=== PATIENT | male | born 1990 | race Caucasian/White ===

== ENCOUNTER 2021-11-03 21:10 | Inpatient (IN) | payer OTHER ==
[2021-11-03] MEDS ORDERED: LORazepam 2 MG/ML SDV IVPUSH ONE ×4 (21:14→23:36)
[2021-11-03] MEDS ORDERED: LORazepam 2 MG/ML SDV ONE ×2 (21:14→23:03)
[2021-11-03] MEDS ORDERED: Lactated Ringers 1,000 ML IV ONE (21:15)
[2021-11-03] MEDS ORDERED: Sodium Chloride 0.9% 10 ML Syringe FLUSH PRN (21:15)
[2021-11-03] MEDS ORDERED: Sodium Chloride 0.9% 2.5 ML Syringe FLUSH PRN (21:15)
--- NOTE | 2021-11-03 21:20 | EDM.PDOC ---
ED HPI GENERAL MEDICAL PROBLEM - General Chief Complaint: Drug or Alcohol Abuse Stated Complaint: EMS ARRIVAL Time Seen by Provider: 11/03/21 21:14 Source of Information: Reports: EMS, Police History Limitations: Reports: Altered Mental Status - History of Present Illness INITIAL COMMENTS - FREE TEXT/NARRATIVE: 31-year-old male with history of drug abuse was brought in by EMS from detention after he was witnessed to be shaking 30 minutes ago and not answering questions. His eyes were open but he was nonverbal to questions. His blood glucose on scene = 130. He was given IV Narcan 2 mg x 2, 5 mg IV Haldol, 25 mg IV Benadryl by EMS with no improvement. He has been in detention over the past 2 to 3 days. Another guard member said that he had powder on his face today. History and review of systems limited secondary to altered mental status. Past medical history: No additional pertinent history Past Surgical history: No additional pertinent history Social history: No additional pertinent history Family history: No additional pertinent history PHYSICAL EXAM General: Somnolent, no distress HEENT: dry mucous membrane Neck: supple, no meningismus, no Kernig or Brudzinski Cardiac: S1S2 tachycardia Respiratory: CTAB, no crackles or rales, no wheezing Abdomen: Soft, nontender, no rebound or guarding, nondistended, no pulsatile mass. He did urinate on himself Back: nontender Skin: dry Musculoskeletal: NVI distally, old superficial lacerations to his left wrist Neuro: Generalized tonic-clonic activity - Related Data Allergies Allergy/AdvReac Type Severity Reaction Status Date / Time No Known Allergies Allergy Verified 11/03/21 21:16 Home Meds: Home Meds . [No Known Home Meds] 11/03/21 [History] ED ROS GENERAL - Review of Systems Review Of Systems: Unable To Obtain (see dictation) Reason Not Obtained: seizure ED EXAM, GENERAL - Physical Exam Exam: See Below Exam Limited By: Altered Mental Status #1 Interpretation EKG Interpretation Comments: Heart rate = bpm, normal sinus rhythm, normal QRS interval, no STEMI. EKG and rhythm strip interpreted by me at 1014p Course - Vital Signs Last Recorded V/S: Last Vital Signs Temp 96.4 F L 11/03/21 21:16 Pulse 62 11/04/21 00:19 Resp 18 11/04/21 00:19 BP 112/66 11/04/21 00:19 Pulse Ox 97 11/04/21 00:19 - Orders/Labs/Meds Orders: Active Orders 24 hr Category Date Time Status Patient Status [ADT] Routine ADT 11/03/21 23:08 Active Blood Alcohol [ETHANOL BLOOD MEDICAL] [CHEM] Stat Lab 11/03/21 21:12 Results COMPREHENSIVE METABOLIC PN,CMP [CHEM] AM Lab 11/04/21 05:11 Ordered COMPREHENSIVE METABOLIC PN,CMP [CHEM] AM Lab 11/05/21 05:11 Ordered COMPREHENSIVE METABOLIC PN,CMP [CHEM] AM Lab 11/06/21 05:11 Ordered COMPREHENSIVE METABOLIC PN,CMP [CHEM] AM Lab 11/07/21 05:11 Ordered MAGNESIUM [CHEM] AM Lab 11/04/21 05:11 Ordered MAGNESIUM [CHEM] AM Lab 11/05/21 05:11 Ordered MAGNESIUM [CHEM] AM Lab 11/06/21 05:11 Ordered MAGNESIUM [CHEM] AM Lab 11/07/21 05:11 Ordered OSMOLALITY - SERUM [REF] Stat Lab 11/03/21 21:12 Received PHOSPHORUS [CHEM] AM Lab 11/04/21 05:11 Ordered PHOSPHORUS [CHEM] AM Lab 11/05/21 05:11 Ordered PHOSPHORUS [CHEM] AM Lab 11/06/21 05:11 Ordered PHOSPHORUS [CHEM] AM Lab 11/07/21 05:11 Ordered PROLACTIN [CHEM] Stat Lab 11/03/21 21:12 Results SODIUM,NA [CHEM] Q1H Lab 11/04/21 02:00 Ordered SODIUM,NA [CHEM] Q1H Lab 11/04/21 03:00 Ordered SODIUM,NA [CHEM] Q1H Lab 11/04/21 04:00 Ordered SODIUM,NA [CHEM] Q1H Lab 11/04/21 06:00 Ordered Folic Acid Med 11/03/21 22:30 Active 1 mg IV DAILY LORazepam [Ativan] Med 11/03/21 23:03 Active See Protocol IVPUSH Q1H PRN Sodium Chloride 0.9% [Saline Flush] Med 11/03/21 21:15 Active 10 ml FLUSH ASDIRECTED PRN Sodium Chloride 0.9% [Saline Flush] Med 11/03/21 21:15 Active 2.5 ml FLUSH ASDIRECTED PRN Sodium Chloride 3% 500 ml Med 11/03/21 22:00 Active IV ASDIRECTED Thiamine [Vitamin B-1] 100 mg Med 11/04/21 09:00 Active Sodium Chloride 0.9% [Normal Saline] 100 ml IV DAILY Saline Lock Insert [OM.PC] Stat Oth 11/03/21 21:15 Ordered Medication Orders Folic Acid (Folic Acid 50 Mg/10 Ml Mdv) 1 mg IV DAILY DALTON Last Admin: 11/03/21 22:29 Dose: 1 mg Documented by: BRIANA Sodium Chloride (Sodium Chloride 3%) 500 mls @ 150 mls/hr IV ASDIRECTED DALTON Last Infusion: 11/04/21 00:35 Dose: 0 mls/hr Documented by: Admin: 11/03/21 22:32 Dose: 150 mls/hr Documented by: BRIANA Thiamine HCl 100 mg/ Sodium (Chloride) 101 mls @ 202 mls/hr IV DAILY DALTON Dextrose/Water (Dextrose 5% In Water) 500 mls @ 500 mls/hr IV ASDIRECTED DALTON Lorazepam (Lorazepam 2 Mg/Ml Sdv) 0 mg IVPUSH Q1H PRN; Protocol PRN Reason: CIWAA Last Admin: 11/04/21 01:07 Dose: 2 mg Documented by: YAMILE Sodium Chloride (Sodium Chloride 0.9% 10 Ml Syringe) 10 ml FLUSH ASDIRECTED PRN PRN Reason: Keep Vein Open Last Admin: 11/03/21 21:23 Dose: 10 ml Documented by: BRIANA Sodium Chloride (Sodium Chloride 0.9% 2.5 Ml Syringe) 2.5 ml FLUSH ASDIRECTED PRN PRN Reason: Keep Vein Open Last Admin: 11/03/21 21:24 Dose: 2.5 ml Documented by: BRIANA Labs: Laboratory Tests 11/03/21 11/03/21 11/03/21 Range/Units 21:12 21:12 21:12 WBC 9.18 (4.0-11.0) K/uL RBC 4.71 (4.50-5.90) M/uL Hgb 14.9 (13.0-17.0) g/dL Hct 39.8 (38.0-50.0) % MCV 84.5 (80.0-98.0) fL MCH 31.6 (27.0-32.0) pg MCHC 37.4 H (31.0-37.0) g/dL RDW Std Deviation 36.4 (28.0-62.0) fl RDW Coeff of Carol 12 (11.0-15.0) % Plt Count 283 (150-400) K/uL MPV 8.90 (7.40-12.00) fL Neut % (Auto) 61.1 (48.0-80.0) % Lymph % (Auto) 29.1 (16.0-40.0) % [place]yer % (Auto) 8.9 (0.0-15.0) % Eos % (Auto) 0.8 (0.0-7.0) % Baso % (Auto) 0.1 (0.0-1.5) % Neut # (Auto) 5.6 (1.4-5.7) K/uL Lymph # (Auto) 2.7 H (0.6-2.4) K/uL Sawyer # (Auto) 0.8 (0.0-0.8) K/uL Eos # (Auto) 0.1 (0.0-0.7) K/uL Baso # (Auto) 0.0 (0.0-0.1) K/uL Nucleated RBC % 0.0 /100WBC Nucleated RBCs # 0 K/uL Sodium 119 L* (136-148) mmol/L Potassium 4.1 (3.5-5.1) mmol/L Chloride 84 L (98-107) mmol/L Carbon Dioxide 22.8 (21.0-32.0) mmol/L BUN 12 (7.0-18.0) mg/dL Creatinine 0.8 (0.8-1.3) mg/dL Est Cr Clr Drug Dosing 129.44 mL/min Estimated GFR (MDRD) > 60.0 ml/min Glucose 133 H (74-106) mg/dL Calcium 8.7 (8.5-10.1) mg/dL Phosphorus 2.1 L (2.6-4.7) mg/dL Magnesium 1.7 L (1.8-2.4) mg/dL Total Bilirubin 0.7 (0.2-1.0) mg/dL AST 56 H (15-37) IU/L ALT 105 H (14-63) IU/L Alkaline Phosphatase 110 (46-116) U/L Creatine Kinase 187 (26-308) U/L Total Protein 7.6 (6.4-8.2) g/dL Albumin 4.0 (3.4-5.0) g/dL Globulin 3.6 (2.6-4.0) g/dL Albumin/Globulin Ratio 1.1 (0.9-1.6) Urine Color Urine Appearance Urine pH (5.0-8.0) Ur Specific [place] (1.001-1.035) Urine Protein (NEGATIVE) mg/dL Urine Glucose (UA) (NEGATIVE) mg/dL Urine Ketones (NEGATIVE) mg/dL Urine Occult Blood (NEGATIVE) Urine Nitrite (NEGATIVE) Urine Bilirubin (NEGATIVE) Urine Urobilinogen (<2.0) EU/dL Ur Leukocyte Esterase (NEGATIVE) Urine RBC (0-2/HPF) Urine WBC (0-5/HPF) Ur Epithelial Cells (NONE-FEW) Urine Bacteria (NEGATIVE) Urine Opiates Screen (NEGATIVE) Ur Oxycodone Screen (NEGATIVE) Urine Methadone Screen (NEGATIVE) Ur Barbiturates Screen (NEGATIVE) Ur Phencyclidine Scrn (NEGATIVE) Ur Amphetamine Screen (NEGATIVE) U Methamphetamines Scrn (NEGATIVE) U Benzodiazepines Scrn (NEGATIVE) U Cocaine Metab Screen (NEGATIVE) U Marijuana (THC) Screen (NEGATIVE) Ethyl Alcohol <3 mg/dL SARS-CoV-2 RNA (BRE) (NEGATIVE) 11/03/21 11/03/21 11/03/21 Range/Units 21:20 22:10 22:10 WBC (4.0-11.0) K/uL RBC (4.50-5.90) M/uL Hgb (13.0-17.0) g/dL Hct (38.0-50.0) % MCV (80.0-98.0) fL MCH (27.0-32.0) pg MCHC (31.0-37.0) g/dL RDW Std Deviation (28.0-62.0) fl RDW Coeff of Carol (11.0-15.0) % Plt Count (150-400) K/uL MPV (7.40-12.00) fL Neut % (Auto) (48.0-80.0) % Lymph % (Auto) (16.0-40.0) % Sawyer % (Auto) (0.0-15.0) % Eos % (Auto) (0.0-7.0) % Baso % (Auto) (0.0-1.5) % Neut # (Auto) (1.4-5.7) K/uL Lymph # (Auto) (0.6-2.4) K/uL [place]yer # (Auto) (0.0-0.8) K/uL Eos # (Auto) (0.0-0.7) K/uL Baso # (Auto) (0.0-0.1) K/uL Nucleated RBC % /100WBC Nucleated RBCs # K/uL Sodium (136-148) mmol/L Potassium (3.5-5.1) mmol/L Chloride (98-107) mmol/L Carbon Dioxide (21.0-32.0) mmol/L BUN (7.0-18.0) mg/dL Creatinine (0.8-1.3) mg/dL Est Cr Clr Drug Dosing mL/min Estimated GFR (MDRD) ml/min Glucose (74-106) mg/dL Calcium (8.5-10.1) mg/dL Phosphorus (2.6-4.7) mg/dL Magnesium (1.8-2.4) mg/dL Total Bilirubin (0.2-1.0) mg/dL AST (15-37) IU/L ALT (14-63) IU/L Alkaline Phosphatase (46-116) U/L Creatine Kinase (26-308) U/L Total Protein (6.4-8.2) g/dL Albumin (3.4-5.0) g/dL Globulin (2.6-4.0) g/dL Albumin/Globulin Ratio (0.9-1.6) Urine Color YELLOW Urine Appearance CLEAR Urine pH 6.5 (5.0-8.0) Ur Specific [place] 1.010 (1.001-1.035) Urine Protein NEGATIVE (NEGATIVE) mg/dL Urine Glucose (UA) NEGATIVE (NEGATIVE) mg/dL Urine Ketones NEGATIVE (NEGATIVE) mg/dL Urine Occult Blood TRACE-INTACT H (NEGATIVE) Urine Nitrite NEGATIVE (NEGATIVE) Urine Bilirubin NEGATIVE (NEGATIVE) Urine Urobilinogen 0.2 (<2.0) EU/dL Ur Leukocyte Esterase NEGATIVE (NEGATIVE) Urine RBC 0-2 (0-2/HPF) Urine WBC 0-1 (0-5/HPF) Ur Epithelial Cells RARE (NONE-FEW) Urine Bacteria RARE (NEGATIVE) Urine Opiates Screen NEGATIVE (NEGATIVE) Ur Oxycodone Screen NEGATIVE (NEGATIVE) Urine Methadone Screen NEGATIVE (NEGATIVE) Ur Barbiturates Screen NEGATIVE (NEGATIVE) Ur Phencyclidine Scrn NEGATIVE (NEGATIVE) Ur Amphetamine Screen POSITIVE (NEGATIVE) U Methamphetamines Scrn NEGATIVE (NEGATIVE) U Benzodiazepines Scrn NEGATIVE (NEGATIVE) U Cocaine Metab Screen NEGATIVE (NEGATIVE) U Marijuana (THC) Screen NEGATIVE (NEGATIVE) Ethyl Alcohol mg/dL SARS-CoV-2 RNA (BRE) NEGATIVE (NEGATIVE) 11/03/21 Range/Units 22:28 WBC (4.0-11.0) K/uL RBC (4.50-5.90) M/uL Hgb (13.0-17.0) g/dL Hct (38.0-50.0) % MCV (80.0-98.0) fL MCH (27.0-32.0) pg MCHC (31.0-37.0) g/dL RDW Std Deviation (28.0-62.0) fl RDW Coeff of Carol (11.0-15.0) % Plt Count (150-400) K/uL MPV (7.40-12.00) fL Neut % (Auto) (48.0-80.0) % Lymph % (Auto) (16.0-40.0) % [place]yer % (Auto) (0.0-15.0) % Eos % (Auto) (0.0-7.0) % Baso % (Auto) (0.0-1.5) % Neut # (Auto) (1.4-5.7) K/uL Lymph # (Auto) (0.6-2.4) K/uL [place]yer # (Auto) (0.0-0.8) K/uL Eos # (Auto) (0.0-0.7) K/uL Baso # (Auto) (0.0-0.1) K/uL Nucleated RBC % /100WBC Nucleated RBCs # K/uL Sodium 123 L (136-148) mmol/L Potassium (3.5-5.1) mmol/L Chloride (98-107) mmol/L Carbon Dioxide (21.0-32.0) mmol/L BUN (7.0-18.0) mg/dL Creatinine (0.8-1.3) mg/dL Est Cr Clr Drug Dosing mL/min Estimated GFR (MDRD) ml/min Glucose (74-106) mg/dL Calcium (8.5-10.1) mg/dL Phosphorus (2.6-4.7) mg/dL Magnesium (1.8-2.4) mg/dL Total Bilirubin (0.2-1.0) mg/dL AST (15-37) IU/L ALT (14-63) IU/L Alkaline Phosphatase (46-116) U/L Creatine Kinase (26-308) U/L Total Protein (6.4-8.2) g/dL Albumin (3.4-5.0) g/dL Globulin (2.6-4.0) g/dL Albumin/Globulin Ratio (0.9-1.6) Urine Color Urine Appearance Urine pH (5.0-8.0) Ur Specific [place] (1.001-1.035) Urine Protein (NEGATIVE) mg/dL Urine Glucose (UA) (NEGATIVE) mg/dL Urine Ketones (NEGATIVE) mg/dL Urine Occult Blood (NEGATIVE) Urine Nitrite (NEGATIVE) Urine Bilirubin (NEGATIVE) Urine Urobilinogen (<2.0) EU/dL Ur Leukocyte Esterase (NEGATIVE) Urine RBC (0-2/HPF) Urine WBC (0-5/HPF) Ur Epithelial Cells (NONE-FEW) Urine Bacteria (NEGATIVE) Urine Opiates Screen (NEGATIVE) Ur Oxycodone Screen (NEGATIVE) Urine Methadone Screen (NEGATIVE) Ur Barbiturates Screen (NEGATIVE) Ur Phencyclidine Scrn (NEGATIVE) Ur Amphetamine Screen (NEGATIVE) U Methamphetamines Scrn (NEGATIVE) U Benzodiazepines Scrn (NEGATIVE) U Cocaine Metab Screen (NEGATIVE) U Marijuana (THC) Screen (NEGATIVE) Ethyl Alcohol mg/dL SARS-CoV-2 RNA (BRE) (NEGATIVE) Meds: Medications Generic Name Dose Route Start Last Admin Trade Name Sandra PRN Reason Stop Dose Admin Folic Acid 1 mg 11/03/21 22:30 11/03/21 22:29 Folic Acid 50 Mg/10 Ml Mdv IV 1 mg DAILY DALTON Administration Sodium Chloride 500 mls @ 150 mls/hr 11/03/21 22:00 11/04/21 00:35 Sodium Chloride 3% IV 0 mls/hr ASDIRECTED DALTON Infusion Thiamine HCl 100 mg/ Sodium 101 mls @ 202 mls/hr 11/04/21 09:00 Chloride IV DAILY DALTON Dextrose/Water 500 mls @ 500 mls/hr 11/04/21 01:31 Dextrose 5% In Water IV ASDIRECTED DALTON Lorazepam 0 mg 11/03/21 23:03 11/04/21 01:07 Lorazepam 2 Mg/Ml Sdv IVPUSH 2 mg Q1H PRN Administration CIWAA Protocol Sodium Chloride 10 ml 11/03/21 21:15 11/03/21 21:23 Sodium Chloride 0.9% 10 Ml Syringe FLUSH 10 ml ASDIRECTED PRN Administration Keep Vein Open Sodium Chloride 2.5 ml 11/03/21 21:15 11/03/21 21:24 Sodium Chloride 0.9% 2.5 Ml Syringe FLUSH 2.5 ml ASDIRECTED PRN Administration Keep Vein Open Discontinued Medications Generic Name Dose Route Start Last Admin Trade Name Sandra PRN Reason Stop Dose Admin Lactated Ringer's 1,000 mls @ 999 mls/hr 11/03/21 21:15 11/03/21 21:24 Ringers, Lactated IV 11/03/21 22:15 999 mls/hr .BOLUS ONE Administration Lorazepam 2 mg 11/03/21 21:14 11/03/21 21:24 Lorazepam 2 Mg/Ml Sdv IVPUSH 11/03/21 21:15 2 mg ONETIME ONE Administration Lorazepam Confirm 11/03/21 21:14 11/03/21 21:20 Lorazepam 2 Mg/Ml Sdv Administered 11/03/21 21:15 Not Given Dose 2 mg .ROUTE .STK-MED ONE Lorazepam 2 mg 11/03/21 21:30 11/03/21 21:34 Lorazepam 2 Mg/Ml Sdv IVPUSH 11/03/21 21:31 2 mg ONETIME ONE Administration Lorazepam 1 mg 11/03/21 23:02 11/03/21 23:45 Lorazepam 2 Mg/Ml Sdv IVPUSH 11/03/21 23:03 1 mg ONETIME ONE Administration Lorazepam Confirm 11/03/21 23:03 11/03/21 23:34 Lorazepam 2 Mg/Ml Sdv Administered 11/03/21 23:04 Not Given Dose 2 mg .ROUTE .STK-MED ONE Lorazepam 1 mg 11/03/21 23:36 11/03/21 23:45 Lorazepam 2 Mg/Ml Sdv IVPUSH 11/03/21 23:37 1 mg ONETIME ONE Administration Thiamine HCl 400 mg 11/03/21 22:16 11/03/21 22:29 Thiamine 200 Mg/2 Ml Mdv IVPUSH 11/03/21 22:17 400 mg ONETIME ONE Administration - Re-Assessments/Exams Free Text/Narrative Re-Assessment/Exam: 11/03/21 21:20 Patient given 2 mg IV Ativan upon arrival for seizure-like activity. 11/03/21 21:59 After second dose of 2 mg IV Ativan, patient's generalized tonic-clonic seizure activity is much improved. Sodium reported at 119, will initiate hypertonic saline with 3% NaCl for symptomatic hyponatremia. 11/03/21 22:19 Toribio inserted, this was met with 1200 cc urine output. 11/03/21 22:[address] Becerra, who agrees to admit patient. The hospitalist's documentation supersedes all other documentation on this patient with regard to any conflicts or discrepancies from this point forward. Any emergency conditions have been treated to the ability of the ED prior to admission. He recommends hourly sodium level, thiamine and folic acid. 11/03/21 23:10 Repeat sodium level = 123, will d/c hypertonic 3% NaCl infusion. Departure - Departure Time of Disposition: 22:20 Disposition: Admitted As Inpatient 66 Preliminary Cause of *Q: Multi System Organ Failure (/) Condition: Critical Clinical Impression: Alcohol withdrawal syndrome, Drug abuse, Hyponatremia, Seizure, Amphetamine abuse - Discharge Information *PRESCRIPTION DRUG MONITORING PROGRAM REVIEWED*: Not Applicable *COPY OF PRESCRIPTION DRUG MONITORING REPORT IN PATIENT MARIE: Not Applicable Critical Care Note - Critical Care Note Total Time (mins): 40 Comments: CRITCAL CARE: The high probability of sudden, clinically significant deterioration in the patient's condition required the highest level of my preparedness to intervene urgently. The services I provided to this patient were to treat and/or prevent clinically significant deterioration. Services included the following: chart data review, reviewing nursing notes and/or old charts, documentation time, cardiology consultants collaboration regarding findings and treatment options, medication orders and management, direct patient care, vital sign assessments and ordering, interpreting and reviewing diagnostic studies/lab tests. Aggregate critical care time includes only time during which I was engaged in work directly related to the patient's care, as described above, whether at the bedside or elsewhere in the Emergency Department. It did not include time spent performing other reported procedures or the services of residents, students, nurses or physician assistants. Frequent interventions and/or frequent repeat evaluations were required as well as counseling and coordination of care regarding prognosis, treatments, and discussions with patient, staff and consultants. Critical Care (excluding other procedures): 40 minutes Sepsis Event Note (ED) - Focused Exam Vital Signs: Vital Signs Temp Pulse Resp BP Pulse Ox 11/03/21 21:30 53 L 18 104/59 L 97 11/03/21 21:16 96.4 F L 62 20 100 - My Orders Last 24 Hours: My Active Orders 11/03/21 21:12 Blood Alcohol [ETHANOL BLOOD MEDICAL] [CHEM] Stat OSMOLALITY - SERUM [REF] Stat PROLACTIN [CHEM] Stat 11/03/21 21:15 Sodium Chloride 0.9% [Saline Flush] 10 ml FLUSH ASDIRECTED PRN Sodium Chloride 0.9% [Saline Flush] 2.5 ml FLUSH ASDIRECTED PRN Saline Lock Insert [OM.PC] Stat 11/03/21 22:00 Sodium Chloride 3% 500 ml IV ASDIRECTED 11/03/21 22:30 Folic Acid 1 mg IV DAILY 11/03/21 23:08 Patient Status [ADT] Routine - Assessment/Plan Last 24 Hours: My Active Orders 11/03/21 21:12 Blood Alcohol [ETHANOL BLOOD MEDICAL] [CHEM] Stat OSMOLALITY - SERUM [REF] Stat PROLACTIN [CHEM] Stat 11/03/21 21:15 Sodium Chloride 0.9% [Saline Flush] 10 ml FLUSH ASDIRECTED PRN Sodium Chloride 0.9% [Saline Flush] 2.5 ml FLUSH ASDIRECTED PRN Saline Lock Insert [OM.PC] Stat 11/03/21 22:00 Sodium Chloride 3% 500 ml IV ASDIRECTED 11/03/21 22:30 Folic Acid 1 mg IV DAILY 11/03/21 23:08 Patient Status [ADT] Routine
[2021-11-03 21:33] LABS: BLOOD UREA NITROGEN,BUN 12 mg/dL (7.0-18.0); CARBON DIOXIDE,CO2 22.8 mmol/L (21.0-32.0); CHLORIDE,CL 84 mmol/L (98-107); GLUCOSE RANDOM 133 mg/dL (74-106); POTASSIUM,K 4.1 mmol/L (3.5-5.1)
[2021-11-03 21:36] LABS: SODIUM,NA 119 mmol/L (136-148)
[2021-11-03] MEDS ORDERED: Sodium Chloride 3% 500 ML IV SCH (22:00)
[2021-11-03] MEDS ORDERED: Thiamine 200 MG/2 ML MDV IVPUSH ONE (22:16)
[2021-11-03] MEDS: Folic Acid 50 MG/10 ML MDV IV SCH (22:29)
--- NOTE | 2021-11-03 23:06 | PCM.HP.2 ---
H&P History of Present Illness - General Date of Service: 11/03/21 - History of Present Illness Initial Comments - Free Text/Narative: 31 yo male who presents to the ED from correction after having a seizure. He has been in correction for three days. Guards report that he is a known drug user and fellow inmates told them he was going to cut something with coffee grounds. He reportedly had powder on his face in correction. He was given narcan, benadryl and haldol by EMS. In the ED he was tremulous and obtunded. He was given ativan and a liter of lactated ringers. His sodium was noted to be 119 on admission and on repeat went up to 123. He has had a liter of urine output. - Related Data Allergies/Adverse Reactions: Allergies Allergy/AdvReac Type Severity Reaction Status Date / Time No Known Allergies Allergy Verified 11/03/21 21:16 Home Medications: Home Meds . [No Known Home Meds] 11/03/21 [History] Past Medical History - Past Health History Medical/Surgical History: Denies Medical/Surgical History Social & Family History - Family History Family Medical History: Unobtainable - Tobacco Use Tobacco Use Status *Q: Current Status Unknown - Caffeine Use Caffeine Use: Reports: None - Recreational Drug Use Recreational Drug Use: Yes Drug Use in Last 12 Months: Yes Recreational Drug Type: Reports: Heroin, Methamphetamine Recreational Drug Use Frequency: Patient Refuses To Answer H&P Review of Systems - Review of Systems: Review Of Systems: Comprehensive ROS is negative, except as noted in HPI. Exam - Exam Exam: See Below - Vital Signs Vital Signs: Last Vital Signs Temp 35.8 C L 11/03/21 21:16 Pulse 53 L 11/03/21 21:30 Resp 18 11/03/21 21:30 BP 104/59 L 11/03/21 21:30 Pulse Ox 97 11/03/21 21:30 Weight: 70.307 kg - Exam General: Obtunded HEENT: Mucosa Moist & [place] Neck: Supple Lungs: Clear to Auscultation, Normal Respiratory Effort Cardiovascular: Regular Rate, Regular Rhythm GI/Abdominal Exam: Normal Bowel Sounds, Soft, Non-Tender Extremities: Non-Tender, No Pedal Edema Skin: Warm, Dry, Intact - Patient Data Lab Results Last 24 hrs: Laboratory Results - last 24 hr 11/03/21 11/03/21 11/03/21 Range/Units 21:12 21:12 21:12 WBC 9.18 (4.0-11.0) K/uL RBC 4.71 (4.50-5.90) M/uL Hgb 14.9 (13.0-17.0) g/dL Hct 39.8 (38.0-50.0) % MCV 84.5 (80.0-98.0) fL MCH 31.6 (27.0-32.0) pg MCHC 37.4 H (31.0-37.0) g/dL RDW Std Deviation 36.4 (28.0-62.0) fl RDW Coeff of Carol 12 (11.0-15.0) % Plt Count 283 (150-400) K/uL MPV 8.90 (7.40-12.00) fL Neut % (Auto) 61.1 (48.0-80.0) % Lymph % (Auto) 29.1 (16.0-40.0) % [place] % (Auto) 8.9 (0.0-15.0) % Eos % (Auto) 0.8 (0.0-7.0) % Baso % (Auto) 0.1 (0.0-1.5) % Neut # (Auto) 5.6 (1.4-5.7) K/uL Lymph # (Auto) 2.7 H (0.6-2.4) K/uL [place] # (Auto) 0.8 (0.0-0.8) K/uL Eos # (Auto) 0.1 (0.0-0.7) K/uL Baso # (Auto) 0.0 (0.0-0.1) K/uL Nucleated RBC % 0.0 /100WBC Nucleated RBCs # 0 K/uL Sodium 119 L* (136-148) mmol/L Potassium 4.1 (3.5-5.1) mmol/L Chloride 84 L (98-107) mmol/L Carbon Dioxide 22.8 (21.0-32.0) mmol/L BUN 12 (7.0-18.0) mg/dL Creatinine 0.8 (0.8-1.3) mg/dL Est Cr Clr Drug Dosing 129.44 mL/min Estimated GFR (MDRD) > 60.0 ml/min Glucose 133 H (74-106) mg/dL Calcium 8.7 (8.5-10.1) mg/dL Phosphorus 2.1 L (2.6-4.7) mg/dL Magnesium 1.7 L (1.8-2.4) mg/dL Total Bilirubin 0.7 (0.2-1.0) mg/dL AST 56 H (15-37) IU/L ALT 105 H (14-63) IU/L Alkaline Phosphatase 110 (46-116) U/L Creatine Kinase 187 (26-308) U/L Total Protein 7.6 (6.4-8.2) g/dL Albumin 4.0 (3.4-5.0) g/dL Globulin 3.6 (2.6-4.0) g/dL Albumin/Globulin Ratio 1.1 (0.9-1.6) Urine Color Urine Appearance Urine pH (5.0-8.0) Ur Specific [place] (1.001-1.035) Urine Protein (NEGATIVE) mg/dL Urine Glucose (UA) (NEGATIVE) mg/dL Urine Ketones (NEGATIVE) mg/dL Urine Occult Blood (NEGATIVE) Urine Nitrite (NEGATIVE) Urine Bilirubin (NEGATIVE) Urine Urobilinogen (<2.0) EU/dL Ur Leukocyte Esterase (NEGATIVE) Urine RBC (0-2/HPF) Urine WBC (0-5/HPF) Ur Epithelial Cells (NONE-FEW) Urine Bacteria (NEGATIVE) Urine Opiates Screen (NEGATIVE) Ur Oxycodone Screen (NEGATIVE) Urine Methadone Screen (NEGATIVE) Ur Barbiturates Screen (NEGATIVE) Ur Phencyclidine Scrn (NEGATIVE) Ur Amphetamine Screen (NEGATIVE) U Methamphetamines Scrn (NEGATIVE) U Benzodiazepines Scrn (NEGATIVE) U Cocaine Metab Screen (NEGATIVE) U Marijuana (THC) Screen (NEGATIVE) Ethyl Alcohol <3 mg/dL SARS-CoV-2 RNA (BRE) (NEGATIVE) 11/03/21 11/03/21 11/03/21 Range/Units 21:20 22:10 22:10 WBC (4.0-11.0) K/uL RBC (4.50-5.90) M/uL Hgb (13.0-17.0) g/dL Hct (38.0-50.0) % MCV (80.0-98.0) fL MCH (27.0-32.0) pg MCHC (31.0-37.0) g/dL RDW Std Deviation (28.0-62.0) fl RDW Coeff of Carol (11.0-15.0) % Plt Count (150-400) K/uL MPV (7.40-12.00) fL Neut % (Auto) (48.0-80.0) % Lymph % (Auto) (16.0-40.0) % [place] % (Auto) (0.0-15.0) % Eos % (Auto) (0.0-7.0) % Baso % (Auto) (0.0-1.5) % Neut # (Auto) (1.4-5.7) K/uL Lymph # (Auto) (0.6-2.4) K/uL [place] # (Auto) (0.0-0.8) K/uL Eos # (Auto) (0.0-0.7) K/uL Baso # (Auto) (0.0-0.1) K/uL Nucleated RBC % /100WBC Nucleated RBCs # K/uL Sodium (136-148) mmol/L Potassium (3.5-5.1) mmol/L Chloride (98-107) mmol/L Carbon Dioxide (21.0-32.0) mmol/L BUN (7.0-18.0) mg/dL Creatinine (0.8-1.3) mg/dL Est Cr Clr Drug Dosing mL/min Estimated GFR (MDRD) ml/min Glucose (74-106) mg/dL Calcium (8.5-10.1) mg/dL Phosphorus (2.6-4.7) mg/dL Magnesium (1.8-2.4) mg/dL Total Bilirubin (0.2-1.0) mg/dL AST (15-37) IU/L ALT (14-63) IU/L Alkaline Phosphatase (46-116) U/L Creatine Kinase (26-308) U/L Total Protein (6.4-8.2) g/dL Albumin (3.4-5.0) g/dL Globulin (2.6-4.0) g/dL Albumin/Globulin Ratio (0.9-1.6) Urine Color YELLOW Urine Appearance CLEAR Urine pH 6.5 (5.0-8.0) Ur Specific [place] 1.010 (1.001-1.035) Urine Protein NEGATIVE (NEGATIVE) mg/dL Urine Glucose (UA) NEGATIVE (NEGATIVE) mg/dL Urine Ketones NEGATIVE (NEGATIVE) mg/dL Urine Occult Blood TRACE-INTACT H (NEGATIVE) Urine Nitrite NEGATIVE (NEGATIVE) Urine Bilirubin NEGATIVE (NEGATIVE) Urine Urobilinogen 0.2 (<2.0) EU/dL Ur Leukocyte Esterase NEGATIVE (NEGATIVE) Urine RBC 0-2 (0-2/HPF) Urine WBC 0-1 (0-5/HPF) Ur Epithelial Cells RARE (NONE-FEW) Urine Bacteria RARE (NEGATIVE) Urine Opiates Screen NEGATIVE (NEGATIVE) Ur Oxycodone Screen NEGATIVE (NEGATIVE) Urine Methadone Screen NEGATIVE (NEGATIVE) Ur Barbiturates Screen NEGATIVE (NEGATIVE) Ur Phencyclidine Scrn NEGATIVE (NEGATIVE) Ur Amphetamine Screen POSITIVE (NEGATIVE) U Methamphetamines Scrn NEGATIVE (NEGATIVE) U Benzodiazepines Scrn NEGATIVE (NEGATIVE) U Cocaine Metab Screen NEGATIVE (NEGATIVE) U Marijuana (THC) Screen NEGATIVE (NEGATIVE) Ethyl Alcohol mg/dL SARS-CoV-2 RNA (BRE) NEGATIVE (NEGATIVE) 11/03/21 Range/Units 22:28 WBC (4.0-11.0) K/uL RBC (4.50-5.90) M/uL Hgb (13.0-17.0) g/dL Hct (38.0-50.0) % MCV (80.0-98.0) fL MCH (27.0-32.0) pg MCHC (31.0-37.0) g/dL RDW Std Deviation (28.0-62.0) fl RDW Coeff of Carol (11.0-15.0) % Plt Count (150-400) K/uL MPV (7.40-12.00) fL Neut % (Auto) (48.0-80.0) % Lymph % (Auto) (16.0-40.0) % [place] % (Auto) (0.0-15.0) % Eos % (Auto) (0.0-7.0) % Baso % (Auto) (0.0-1.5) % Neut # (Auto) (1.4-5.7) K/uL Lymph # (Auto) (0.6-2.4) K/uL [place] # (Auto) (0.0-0.8) K/uL Eos # (Auto) (0.0-0.7) K/uL Baso # (Auto) (0.0-0.1) K/uL Nucleated RBC % /100WBC Nucleated RBCs # K/uL Sodium 123 L (136-148) mmol/L Potassium (3.5-5.1) mmol/L Chloride (98-107) mmol/L Carbon Dioxide (21.0-32.0) mmol/L BUN (7.0-18.0) mg/dL Creatinine (0.8-1.3) mg/dL Est Cr Clr Drug Dosing mL/min Estimated GFR (MDRD) ml/min Glucose (74-106) mg/dL Calcium (8.5-10.1) mg/dL Phosphorus (2.6-4.7) mg/dL Magnesium (1.8-2.4) mg/dL Total Bilirubin (0.2-1.0) mg/dL AST (15-37) IU/L ALT (14-63) IU/L Alkaline Phosphatase (46-116) U/L Creatine Kinase (26-308) U/L Total Protein (6.4-8.2) g/dL Albumin (3.4-5.0) g/dL Globulin (2.6-4.0) g/dL Albumin/Globulin Ratio (0.9-1.6) Urine Color Urine Appearance Urine pH (5.0-8.0) Ur Specific [place] (1.001-1.035) Urine Protein (NEGATIVE) mg/dL Urine Glucose (UA) (NEGATIVE) mg/dL Urine Ketones (NEGATIVE) mg/dL Urine Occult Blood (NEGATIVE) Urine Nitrite (NEGATIVE) Urine Bilirubin (NEGATIVE) Urine Urobilinogen (<2.0) EU/dL Ur Leukocyte Esterase (NEGATIVE) Urine RBC (0-2/HPF) Urine WBC (0-5/HPF) Ur Epithelial Cells (NONE-FEW) Urine Bacteria (NEGATIVE) Urine Opiates Screen (NEGATIVE) Ur Oxycodone Screen (NEGATIVE) Urine Methadone Screen (NEGATIVE) Ur Barbiturates Screen (NEGATIVE) Ur Phencyclidine Scrn (NEGATIVE) Ur Amphetamine Screen (NEGATIVE) U Methamphetamines Scrn (NEGATIVE) U Benzodiazepines Scrn (NEGATIVE) U Cocaine Metab Screen (NEGATIVE) U Marijuana (THC) Screen (NEGATIVE) Ethyl Alcohol mg/dL SARS-CoV-2 RNA (BRE) (NEGATIVE) Result Diagrams: 11/04/21 06:00 11/04/21 14:05 Sepsis Event Note - Evaluation Sepsis Screening Result: No Definite Risk - Focused Exam Vital Signs: Vital Signs Temp Pulse Resp BP Pulse Ox 11/03/21 21:30 53 L 18 104/59 L 97 11/03/21 21:16 35.8 C L 62 20 100 Problem List Initiated/Reviewed/Updated: Yes Orders Last 24hrs: Active Orders 24 hr Category Date Time Status Cardiac Monitoring [RC] . DIRECTED Care 11/03/21 21:15 Active Pulse Oximetry [RC] ASDIRECTED Care 11/03/21 21:15 Active CXR [Chest 1V Frontal] [CR] Stat Exams 11/03/21 22:41 Ordered Head wo Cont [CT] Stat Exams 11/03/21 21:49 Ordered Blood Alcohol [ETHANOL BLOOD MEDICAL] [CHEM] Stat Lab 11/03/21 21:12 Results COMPREHENSIVE METABOLIC PN,CMP [CHEM] AM Lab 11/04/21 05:11 Ordered COMPREHENSIVE METABOLIC PN,CMP [CHEM] AM Lab 11/05/21 05:11 Ordered COMPREHENSIVE METABOLIC PN,CMP [CHEM] AM Lab 11/06/21 05:11 Ordered COMPREHENSIVE METABOLIC PN,CMP [CHEM] AM Lab 11/07/21 05:11 Ordered MAGNESIUM [CHEM] AM Lab 11/04/21 05:11 Ordered MAGNESIUM [CHEM] AM Lab 11/05/21 05:11 Ordered MAGNESIUM [CHEM] AM Lab 11/06/21 05:11 Ordered MAGNESIUM [CHEM] AM Lab 11/07/21 05:11 Ordered OSMOLALITY - SERUM [REF] Stat Lab 11/03/21 21:12 Received PHOSPHORUS [CHEM] AM Lab 11/04/21 05:11 Ordered PHOSPHORUS [CHEM] AM Lab 11/05/21 05:11 Ordered PHOSPHORUS [CHEM] AM Lab 11/06/21 05:11 Ordered PHOSPHORUS [CHEM] AM Lab 11/07/21 05:11 Ordered PROLACTIN [CHEM] Stat Lab 11/03/21 21:12 Results SODIUM,NA [CHEM] Q1H Lab 11/04/21 01:00 Ordered SODIUM,NA [CHEM] Q1H Lab 11/04/21 02:00 Ordered SODIUM,NA [CHEM] Q1H Lab 11/04/21 03:00 Ordered SODIUM,NA [CHEM] Q1H Lab 11/04/21 04:00 Ordered SODIUM,NA [CHEM] Q1H Lab 11/04/21 05:00 Ordered SODIUM,NA [CHEM] Q1H Lab 11/04/21 06:00 Ordered SODIUM,NA [CHEM] Routine Lab 11/03/21 23:59 Ordered Folic Acid Med 11/03/21 22:30 Active 1 mg IV DAILY LORazepam [Ativan] Med 11/03/21 23:03 Ordered See Protocol IVPUSH Q1H PRN Sodium Chloride 0.9% [Saline Flush] Med 11/03/21 21:15 Active 10 ml FLUSH ASDIRECTED PRN Sodium Chloride 0.9% [Saline Flush] Med 11/03/21 21:15 Active 2.5 ml FLUSH ASDIRECTED PRN Sodium Chloride 3% 500 ml Med 11/03/21 22:00 Active IV ASDIRECTED Thiamine [Vitamin B-1] 100 mg Med 11/04/21 09:00 Ordered Sodium Chloride 0.9% [Normal Saline] 100 ml IV DAILY Saline Lock Insert [OM.PC] Stat Oth 11/03/21 21:15 Ordered Medication Orders Folic Acid (Folic Acid 50 Mg/10 Ml Mdv) 1 mg IV DAILY [facility] Last Admin: 11/03/21 22:29 Dose: 1 mg Documented by: BRIANA Sodium Chloride (Sodium Chloride 3%) 500 mls @ 150 mls/hr IV ASDIRECTED [place] Last Admin: 11/03/21 22:32 Dose: 150 mls/hr Documented by: BRIANA Thiamine HCl 100 mg/ Sodium (Chloride) 101 mls @ 202 mls/hr IV DAILY [facility] Lorazepam (Lorazepam 2 Mg/Ml Sdv) 0 mg IVPUSH Q1H PRN; Protocol PRN Reason: CIWAA Sodium Chloride (Sodium Chloride 0.9% 10 Ml Syringe) 10 ml FLUSH ASDIRECTED PRN PRN Reason: Keep Vein Open Last Admin: 11/03/21 21:23 Dose: 10 ml Documented by: WILLIANGMIC Sodium Chloride (Sodium Chloride 0.9% 2.5 Ml Syringe) 2.5 ml FLUSH ASDIRECTED PRN PRN Reason: Keep Vein Open Last Admin: 11/03/21 21:24 Dose: 2.5 ml Documented by: SEAGMIC Assessment/Plan Comment:: 31 yo male with suspect drug/ETOH abuse admitted following seizure and found to have severe hyponatremia. Hyponatremia: Patient was given a liter of lactate ringers, sodium has increased by 4, will continue to trend. I spoke and discussed case with eICU physician suspected ETOH abuse: will place on CIWAA protocol, with prn Ativan, folic acid and thiamin
--- NOTE | 2021-11-03 23:37 | CT ---
Indication: Seizure. Technique: Multiple contiguous axial images were obtained from the skullbase to the vertex without intravenous contrast enhancement. Please note that all CT scans at this facility use dose modulation, iterative reconstruction, and/or weight-based dosing when appropriate to reduce radiation dose to as low as reasonably achievable. Comparison: None Findings: The ventricles are symmetric and normal in size and morphology. The basal cisterns are widely patent. No intra-axial or extra-axial hemorrhage is identified. No mass, mass effect or midline shift is identified. The visualized portions of the mastoid air cells and paranasal sinuses are clear. The bony calvarium is intact. Impression: No acute intracranial process. Please note that all CT scans at this facility use dose modulation, iterative reconstruction, and/or weight-based dosing when appropriate to reduce radiation dose to as low as reasonably achievable. Dictated by Mallory Martinez MD @ 11/03/2021 11:35:36 PM (Electronically Signed)
--- NOTE | 2021-11-03 23:45 | CR ---
Indication: Seizure. Technique: AP portable view of the chest. Comparison: None Findings: The heart is normal in size. The lungs are clear. No infiltrate, pleural effusion, or pneumothorax is identified. Impression: No acute cardiopulmonary process Dictated by Mallory Martinez MD @ 11/03/2021 11:44:34 PM (Electronically Signed)
[2021-11-04] MEDS: LORazepam 2 MG/ML SDV IVPUSH PRN ×4 (01:07→08:47)
[2021-11-04] MEDS ORDERED: Dextrose 5% in Water 500 ML IV SCH (01:31)
--- NOTE | 2021-11-04 01:35 | PN ---
THC Physician - Brief Progress PtuaMZUXTZGER36/12/2021 01:03[facility] Penny [place]den, [place] - MWN (RERE) - SHAYY HOANGDEON HERNÁNDEZNedraDate of Service 11/04/2021 01:03HPI/Events o f Note eICU Admission NoteSign out recieved from ER admitting [id number] yo M incarcerated BIBEMS af ter being found seizing after suspected inhalational ingestion. Stigmata of white powder found around his naresNa low on arrival to ER Recieved multiple doses of ativan and started on hypertonic salineO n Camera Awake and alertUncooperative with nursing staffAppears euvoleamic HR 85 NSR BP 130/88 RR 18 Sats 97% RALabs of noteNa 119 to 131 !Chloride 84eICU Recommendations:Discussed with bedside RN- only briefly recieved hypertonic saline, was turned off before he arrived in ICUDid recieve 4 L of fluids in ERSerum Osm was sent at 9pm from ER but send out lab and turn around 12-24 hrs. Without serum osm to confirm, it is difficult to be sure this is real vs pseudohyponatremia. Will give 500ml D5W bolus and try aim to get Na closer to 125 for nowThank you for allowing us to participate in the care of y our patient.Interventions Major-Electrolyte abnormality - evaluation and managementIntermediate-Commu nication with other healthcare providers and/or familyElectronically Signed by: GAB LOZOYA) o n 11/04/2021 01:34
[2021-11-04] MEDS ORDERED: Dextrose 5% in Water 1,000 ML IV SCH ×3 (01:45→10:15)
[2021-11-04] MEDS ORDERED: Haloperidol Lactate 5 MG/ML SDV IM ONE (04:14)
[2021-11-04] MEDS ORDERED: Haloperidol Lactate 5 MG/ML SDV ONE ×2 (04:14→16:03)
--- NOTE | 2021-11-04 04:17 | PN ---
THC Physician - Brief Progress [id number]/12/2021 04:13[facility] Ramirez lauraPenny, KERRI - SHAYY (RERE) - DEON ORNELASDate of Service 11/04/2021 04:13HPI/Events o f Note Asked to camera in emergently- attendedPatient thrashing Attempting to climb out of bed despit e being handcuffed to bed Difficult to redirectHaldol 7mg IMI statAlso Na to 135- will give dose of d davp to try reverseInterventions Major-Delirium, psychosis, severe agitation - evaluation and managem ent, Electrolyte abnormality - evaluation and management
[2021-11-04] MEDS ORDERED: Desmopressin 4 MCG/1 ML Amp SUBCUT ONE (04:31)
[2021-11-04 05:30] LABS: BLOOD UREA NITROGEN,BUN 9 mg/dL (7.0-18.0); CARBON DIOXIDE,CO2 25.1 mmol/L (21.0-32.0); CHLORIDE,CL 105 mmol/L (98-107); GLUCOSE RANDOM 87 mg/dL (74-106); POTASSIUM,K 4.3 mmol/L (3.5-5.1); SODIUM,NA 140 mmol/L (136-148)
--- NOTE | 2021-11-04 07:07 | PN ---
THC Physician - Brief Progress [id number]/12/2021 07:06[facility] Penny sanchez [place] - SHAYY (RERE) - DEON ORNELASDate of Service 11/04/2021 07:06HPI/Events o f Note Na up to 140 but back down to 138 Will give another 500ml D5W bolus and continue checking q4h until stabilizesInterventions Major-Electrolyte abnormality - evaluation and management
[2021-11-04] MEDS: Folic Acid 50 MG/10 ML MDV IV SCH (08:47)
[2021-11-04] MEDS ORDERED: Thiamine 100 MG in Sodium Chloride 0.9% 100 ML IV SCH (09:00)
[2021-11-04] MEDS ORDERED: Thiamine 200 MG/2 ML MDV IVPUSH SCH (09:00)
--- NOTE | 2021-11-04 09:08 | PN ---
THC Physician - Brief Progress [id number]/12/2021 08:41[facility] laura [place], [place] - SHAYY (RERE) - DEON ORNELASDate of Service 11/04/2021 08:41HPI/Events o f Note eICU Update NoteSCDs ordered for DVT ppx per requestInterventions Clsqgfzhtigz-[id number] t herapies (e.g. VTE, beta renetta, etc.) 0 8:42
[2021-11-04] MEDS ORDERED: chlordiazePOXIDE 25 MG Cap PO ONE ×2 (13:28→16:24)
--- NOTE | 2021-11-04 13:48 | PCM.PN ---
- General Info Date of Service: 11/04/21 - Review of Systems Systems Review Comment:: denies any pain, denies any drug use - Patient Data Vitals - Most Recent: Last Vital Signs Temp 36.2 C 11/04/21 09:00 Pulse 62 11/04/21 00:19 Resp 22 H 11/04/21 10:00 BP 117/65 11/04/21 09:00 Pulse Ox 99 11/04/21 10:00 Weight - Most Recent: 70.307 kg I&O - Last 24 Hours: Intake & Output 11/03/21 11/04/21 11/04/21 22:59 06:59 14:59 Intake Total 1630 Output Total 7700 Balance -6070 Lab Results Last 24 Hours: Laboratory Results - last 24 hr 11/03/21 11/03/21 11/03/21 Range/Units 21:12 21:12 21:12 WBC 9.18 (4.0-11.0) K/uL RBC 4.71 (4.50-5.90) M/uL Hgb 14.9 (13.0-17.0) g/dL Hct 39.8 (38.0-50.0) % MCV 84.5 (80.0-98.0) fL MCH 31.6 (27.0-32.0) pg MCHC 37.4 H (31.0-37.0) g/dL RDW Std Deviation 36.4 (28.0-62.0) fl RDW Coeff of Carol 12 (11.0-15.0) % Plt Count 283 (150-400) K/uL MPV 8.90 (7.40-12.00) fL Neut % (Auto) 61.1 (48.0-80.0) % Lymph % (Auto) 29.1 (16.0-40.0) % [place] % (Auto) 8.9 (0.0-15.0) % Eos % (Auto) 0.8 (0.0-7.0) % Baso % (Auto) 0.1 (0.0-1.5) % Neut # (Auto) 5.6 (1.4-5.7) K/uL Lymph # (Auto) 2.7 H (0.6-2.4) K/uL [place] # (Auto) 0.8 (0.0-0.8) K/uL Eos # (Auto) 0.1 (0.0-0.7) K/uL Baso # (Auto) 0.0 (0.0-0.1) K/uL Nucleated RBC % 0.0 /100WBC Nucleated RBCs # 0 K/uL Sodium 119 L* (136-148) mmol/L Potassium 4.1 (3.5-5.1) mmol/L Chloride 84 L (98-107) mmol/L Carbon Dioxide 22.8 (21.0-32.0) mmol/L BUN 12 (7.0-18.0) mg/dL Creatinine 0.8 (0.8-1.3) mg/dL Est Cr Clr Drug Dosing 129.44 mL/min Estimated GFR (MDRD) > 60.0 ml/min Glucose 133 H (74-106) mg/dL Lactic Acid (0.4-2.0) mmol/L Calcium 8.7 (8.5-10.1) mg/dL Phosphorus 2.1 L (2.6-4.7) mg/dL Magnesium 1.7 L (1.8-2.4) mg/dL Total Bilirubin 0.7 (0.2-1.0) mg/dL AST 56 H (15-37) IU/L ALT 105 H (14-63) IU/L Alkaline Phosphatase 110 (46-116) U/L Creatine Kinase 187 (26-308) U/L Total Protein 7.6 (6.4-8.2) g/dL Albumin 4.0 (3.4-5.0) g/dL Globulin 3.6 (2.6-4.0) g/dL Albumin/Globulin Ratio 1.1 (0.9-1.6) Urine Color Urine Appearance Urine pH (5.0-8.0) Ur Specific [place] (1.001-1.035) Urine Protein (NEGATIVE) mg/dL Urine Glucose (UA) (NEGATIVE) mg/dL Urine Ketones (NEGATIVE) mg/dL Urine Occult Blood (NEGATIVE) Urine Nitrite (NEGATIVE) Urine Bilirubin (NEGATIVE) Urine Urobilinogen (<2.0) EU/dL Ur Leukocyte Esterase (NEGATIVE) Urine RBC (0-2/HPF) Urine WBC (0-5/HPF) Ur Epithelial Cells (NONE-FEW) Urine Bacteria (NEGATIVE) Urine Opiates Screen (NEGATIVE) Ur Oxycodone Screen (NEGATIVE) Urine Methadone Screen (NEGATIVE) Ur Barbiturates Screen (NEGATIVE) Ur Phencyclidine Scrn (NEGATIVE) Ur Amphetamine Screen (NEGATIVE) U Methamphetamines Scrn (NEGATIVE) U Benzodiazepines Scrn (NEGATIVE) U Cocaine Metab Screen (NEGATIVE) U Marijuana (THC) Screen (NEGATIVE) Ethyl Alcohol <3 mg/dL SARS-CoV-2 RNA (BRE) (NEGATIVE) 11/03/21 11/03/21 11/03/21 Range/Units 21:20 22:10 22:10 WBC (4.0-11.0) K/uL RBC (4.50-5.90) M/uL Hgb (13.0-17.0) g/dL Hct (38.0-50.0) % MCV (80.0-98.0) fL MCH (27.0-32.0) pg MCHC (31.0-37.0) g/dL RDW Std Deviation (28.0-62.0) fl RDW Coeff of Carol (11.0-15.0) % Plt Count (150-400) K/uL MPV (7.40-12.00) fL Neut % (Auto) (48.0-80.0) % Lymph % (Auto) (16.0-40.0) % [place] % (Auto) (0.0-15.0) % Eos % (Auto) (0.0-7.0) % Baso % (Auto) (0.0-1.5) % Neut # (Auto) (1.4-5.7) K/uL Lymph # (Auto) (0.6-2.4) K/uL [place] # (Auto) (0.0-0.8) K/uL Eos # (Auto) (0.0-0.7) K/uL Baso # (Auto) (0.0-0.1) K/uL Nucleated RBC % /100WBC Nucleated RBCs # K/uL Sodium (136-148) mmol/L Potassium (3.5-5.1) mmol/L Chloride (98-107) mmol/L Carbon Dioxide (21.0-32.0) mmol/L BUN (7.0-18.0) mg/dL Creatinine (0.8-1.3) mg/dL Est Cr Clr Drug Dosing mL/min Estimated GFR (MDRD) ml/min Glucose (74-106) mg/dL Lactic Acid (0.4-2.0) mmol/L Calcium (8.5-10.1) mg/dL Phosphorus (2.6-4.7) mg/dL Magnesium (1.8-2.4) mg/dL Total Bilirubin (0.2-1.0) mg/dL AST (15-37) IU/L ALT (14-63) IU/L Alkaline Phosphatase (46-116) U/L Creatine Kinase (26-308) U/L Total Protein (6.4-8.2) g/dL Albumin (3.4-5.0) g/dL Globulin (2.6-4.0) g/dL Albumin/Globulin Ratio (0.9-1.6) Urine Color YELLOW Urine Appearance CLEAR Urine pH 6.5 (5.0-8.0) Ur Specific [place] 1.010 (1.001-1.035) Urine Protein NEGATIVE (NEGATIVE) mg/dL Urine Glucose (UA) NEGATIVE (NEGATIVE) mg/dL Urine Ketones NEGATIVE (NEGATIVE) mg/dL Urine Occult Blood TRACE-INTACT H (NEGATIVE) Urine Nitrite NEGATIVE (NEGATIVE) Urine Bilirubin NEGATIVE (NEGATIVE) Urine Urobilinogen 0.2 (<2.0) EU/dL Ur Leukocyte Esterase NEGATIVE (NEGATIVE) Urine RBC 0-2 (0-2/HPF) Urine WBC 0-1 (0-5/HPF) Ur Epithelial Cells RARE (NONE-FEW) Urine Bacteria RARE (NEGATIVE) Urine Opiates Screen NEGATIVE (NEGATIVE) Ur Oxycodone Screen NEGATIVE (NEGATIVE) Urine Methadone Screen NEGATIVE (NEGATIVE) Ur Barbiturates Screen NEGATIVE (NEGATIVE) Ur Phencyclidine Scrn NEGATIVE (NEGATIVE) Ur Amphetamine Screen POSITIVE (NEGATIVE) U Methamphetamines Scrn NEGATIVE (NEGATIVE) U Benzodiazepines Scrn NEGATIVE (NEGATIVE) U Cocaine Metab Screen NEGATIVE (NEGATIVE) U Marijuana (THC) Screen NEGATIVE (NEGATIVE) Ethyl Alcohol mg/dL SARS-CoV-2 RNA (BRE) NEGATIVE (NEGATIVE) 11/03/21 11/04/21 11/04/21 Range/Units 22:28 00:00 01:03 WBC (4.0-11.0) K/uL RBC (4.50-5.90) M/uL Hgb (13.0-17.0) g/dL Hct (38.0-50.0) % MCV (80.0-98.0) fL MCH (27.0-32.0) pg MCHC (31.0-37.0) g/dL RDW Std Deviation (28.0-62.0) fl RDW Coeff of Carol (11.0-15.0) % Plt Count (150-400) K/uL MPV (7.40-12.00) fL Neut % (Auto) (48.0-80.0) % Lymph % (Auto) (16.0-40.0) % [place] % (Auto) (0.0-15.0) % Eos % (Auto) (0.0-7.0) % Baso % (Auto) (0.0-1.5) % Neut # (Auto) (1.4-5.7) K/uL Lymph # (Auto) (0.6-2.4) K/uL [place] # (Auto) (0.0-0.8) K/uL Eos # (Auto) (0.0-0.7) K/uL Baso # (Auto) (0.0-0.1) K/uL Nucleated RBC % /100WBC Nucleated RBCs # K/uL Sodium 123 L 131 L 136 (136-148) mmol/L Potassium (3.5-5.1) mmol/L Chloride (98-107) mmol/L Carbon Dioxide (21.0-32.0) mmol/L BUN (7.0-18.0) mg/dL Creatinine (0.8-1.3) mg/dL Est Cr Clr Drug Dosing mL/min Estimated GFR (MDRD) ml/min Glucose (74-106) mg/dL Lactic Acid (0.4-2.0) mmol/L Calcium (8.5-10.1) mg/dL Phosphorus (2.6-4.7) mg/dL Magnesium (1.8-2.4) mg/dL Total Bilirubin (0.2-1.0) mg/dL AST (15-37) IU/L ALT (14-63) IU/L Alkaline Phosphatase (46-116) U/L Creatine Kinase (26-308) U/L Total Protein (6.4-8.2) g/dL Albumin (3.4-5.0) g/dL Globulin (2.6-4.0) g/dL Albumin/Globulin Ratio (0.9-1.6) Urine Color Urine Appearance Urine pH (5.0-8.0) Ur Specific [place] (1.001-1.035) Urine Protein (NEGATIVE) mg/dL Urine Glucose (UA) (NEGATIVE) mg/dL Urine Ketones (NEGATIVE) mg/dL Urine Occult Blood (NEGATIVE) Urine Nitrite (NEGATIVE) Urine Bilirubin (NEGATIVE) Urine Urobilinogen (<2.0) EU/dL Ur Leukocyte Esterase (NEGATIVE) Urine RBC (0-2/HPF) Urine WBC (0-5/HPF) Ur Epithelial Cells (NONE-FEW) Urine Bacteria (NEGATIVE) Urine Opiates Screen (NEGATIVE) Ur Oxycodone Screen (NEGATIVE) Urine Methadone Screen (NEGATIVE) Ur Barbiturates Screen (NEGATIVE) Ur Phencyclidine Scrn (NEGATIVE) Ur Amphetamine Screen (NEGATIVE) U Methamphetamines Scrn (NEGATIVE) U Benzodiazepines Scrn (NEGATIVE) U Cocaine Metab Screen (NEGATIVE) U Marijuana (THC) Screen (NEGATIVE) Ethyl Alcohol mg/dL SARS-CoV-2 RNA (BRE) (NEGATIVE) 11/04/21 11/04/21 11/04/21 Range/Units 01:59 03:05 04:03 WBC (4.0-11.0) K/uL RBC (4.50-5.90) M/uL Hgb (13.0-17.0) g/dL Hct (38.0-50.0) % MCV (80.0-98.0) fL MCH (27.0-32.0) pg MCHC (31.0-37.0) g/dL RDW Std Deviation (28.0-62.0) fl RDW Coeff of Carol (11.0-15.0) % Plt Count (150-400) K/uL MPV (7.40-12.00) fL Neut % (Auto) (48.0-80.0) % Lymph % (Auto) (16.0-40.0) % [place] % (Auto) (0.0-15.0) % Eos % (Auto) (0.0-7.0) % Baso % (Auto) (0.0-1.5) % Neut # (Auto) (1.4-5.7) K/uL Lymph # (Auto) (0.6-2.4) K/uL [place] # (Auto) (0.0-0.8) K/uL Eos # (Auto) (0.0-0.7) K/uL Baso # (Auto) (0.0-0.1) K/uL Nucleated RBC % /100WBC Nucleated RBCs # K/uL Sodium 138 137 138 (136-148) mmol/L Potassium (3.5-5.1) mmol/L Chloride (98-107) mmol/L Carbon Dioxide (21.0-32.0) mmol/L BUN (7.0-18.0) mg/dL Creatinine (0.8-1.3) mg/dL Est Cr Clr Drug Dosing mL/min Estimated GFR (MDRD) ml/min Glucose (74-106) mg/dL Lactic Acid (0.4-2.0) mmol/L Calcium (8.5-10.1) mg/dL Phosphorus (2.6-4.7) mg/dL Magnesium (1.8-2.4) mg/dL Total Bilirubin (0.2-1.0) mg/dL AST (15-37) IU/L ALT (14-63) IU/L Alkaline Phosphatase (46-116) U/L Creatine Kinase (26-308) U/L Total Protein (6.4-8.2) g/dL Albumin (3.4-5.0) g/dL Globulin (2.6-4.0) g/dL Albumin/Globulin Ratio (0.9-1.6) Urine Color Urine Appearance Urine pH (5.0-8.0) Ur Specific [place] (1.001-1.035) Urine Protein (NEGATIVE) mg/dL Urine Glucose (UA) (NEGATIVE) mg/dL Urine Ketones (NEGATIVE) mg/dL Urine Occult Blood (NEGATIVE) Urine Nitrite (NEGATIVE) Urine Bilirubin (NEGATIVE) Urine Urobilinogen (<2.0) EU/dL Ur Leukocyte Esterase (NEGATIVE) Urine RBC (0-2/HPF) Urine WBC (0-5/HPF) Ur Epithelial Cells (NONE-FEW) Urine Bacteria (NEGATIVE) Urine Opiates Screen (NEGATIVE) Ur Oxycodone Screen (NEGATIVE) Urine Methadone Screen (NEGATIVE) Ur Barbiturates Screen (NEGATIVE) Ur Phencyclidine Scrn (NEGATIVE) Ur Amphetamine Screen (NEGATIVE) U Methamphetamines Scrn (NEGATIVE) U Benzodiazepines Scrn (NEGATIVE) U Cocaine Metab Screen (NEGATIVE) U Marijuana (THC) Screen (NEGATIVE) Ethyl Alcohol mg/dL SARS-CoV-2 RNA (BRE) (NEGATIVE) 11/04/21 11/04/21 11/04/21 Range/Units 05:00 06:00 06:00 WBC 9.77 (4.0-11.0) K/uL RBC 4.86 (4.50-5.90) M/uL Hgb 15.3 (13.0-17.0) g/dL Hct 40.7 (38.0-50.0) % MCV 83.7 (80.0-98.0) fL MCH 31.5 (27.0-32.0) pg MCHC 37.6 H (31.0-37.0) g/dL RDW Std Deviation 36.6 (28.0-62.0) fl RDW Coeff of Carol 12 (11.0-15.0) % Plt Count 320 (150-400) K/uL MPV 9.30 (7.40-12.00) fL Neut % (Auto) (48.0-80.0) % Lymph % (Auto) (16.0-40.0) % [place] % (Auto) (0.0-15.0) % Eos % (Auto) (0.0-7.0) % Baso % (Auto) (0.0-1.5) % Neut # (Auto) (1.4-5.7) K/uL Lymph # (Auto) (0.6-2.4) K/uL [place] # (Auto) (0.0-0.8) K/uL Eos # (Auto) (0.0-0.7) K/uL Baso # (Auto) (0.0-0.1) K/uL Nucleated RBC % 0.0 /100WBC Nucleated RBCs # 0 K/uL Sodium 140 138 (136-148) mmol/L Potassium 4.3 (3.5-5.1) mmol/L Chloride 105 (98-107) mmol/L Carbon Dioxide 25.1 (21.0-32.0) mmol/L BUN 9 (7.0-18.0) mg/dL Creatinine 0.7 L (0.8-1.3) mg/dL Est Cr Clr Drug Dosing 147.93 mL/min Estimated GFR (MDRD) > 60.0 ml/min Glucose 87 (74-106) mg/dL Lactic Acid (0.4-2.0) mmol/L Calcium 8.7 (8.5-10.1) mg/dL Phosphorus 3.6 (2.6-4.7) mg/dL Magnesium 2.1 (1.8-2.4) mg/dL Total Bilirubin 0.7 (0.2-1.0) mg/dL AST 51 H (15-37) IU/L ALT 90 H (14-63) IU/L Alkaline Phosphatase 106 (46-116) U/L Creatine Kinase (26-308) U/L Total Protein 6.7 (6.4-8.2) g/dL Albumin 3.9 (3.4-5.0) g/dL Globulin 2.8 (2.6-4.0) g/dL Albumin/Globulin Ratio 1.4 (0.9-1.6) Urine Color Urine Appearance Urine pH (5.0-8.0) Ur Specific [place] (1.001-1.035) Urine Protein (NEGATIVE) mg/dL Urine Glucose (UA) (NEGATIVE) mg/dL Urine Ketones (NEGATIVE) mg/dL Urine Occult Blood (NEGATIVE) Urine Nitrite (NEGATIVE) Urine Bilirubin (NEGATIVE) Urine Urobilinogen (<2.0) EU/dL Ur Leukocyte Esterase (NEGATIVE) Urine RBC (0-2/HPF) Urine WBC (0-5/HPF) Ur Epithelial Cells (NONE-FEW) Urine Bacteria (NEGATIVE) Urine Opiates Screen (NEGATIVE) Ur Oxycodone Screen (NEGATIVE) Urine Methadone Screen (NEGATIVE) Ur Barbiturates Screen (NEGATIVE) Ur Phencyclidine Scrn (NEGATIVE) Ur Amphetamine Screen (NEGATIVE) U Methamphetamines Scrn (NEGATIVE) U Benzodiazepines Scrn (NEGATIVE) U Cocaine Metab Screen (NEGATIVE) U Marijuana (THC) Screen (NEGATIVE) Ethyl Alcohol mg/dL SARS-CoV-2 RNA (BRE) (NEGATIVE) 11/04/21 11/04/21 Range/Units 10:05 10:05 WBC (4.0-11.0) K/uL RBC (4.50-5.90) M/uL Hgb (13.0-17.0) g/dL Hct (38.0-50.0) % MCV (80.0-98.0) fL MCH (27.0-32.0) pg MCHC (31.0-37.0) g/dL RDW Std Deviation (28.0-62.0) fl RDW Coeff of Carol (11.0-15.0) % Plt Count (150-400) K/uL MPV (7.40-12.00) fL Neut % (Auto) (48.0-80.0) % Lymph % (Auto) (16.0-40.0) % [place] % (Auto) (0.0-15.0) % Eos % (Auto) (0.0-7.0) % Baso % (Auto) (0.0-1.5) % Neut # (Auto) (1.4-5.7) K/uL Lymph # (Auto) (0.6-2.4) K/uL [place] # (Auto) (0.0-0.8) K/uL Eos # (Auto) (0.0-0.7) K/uL Baso # (Auto) (0.0-0.1) K/uL Nucleated RBC % /100WBC Nucleated RBCs # K/uL Sodium 137 (136-148) mmol/L Potassium (3.5-5.1) mmol/L Chloride (98-107) mmol/L Carbon Dioxide (21.0-32.0) mmol/L BUN (7.0-18.0) mg/dL Creatinine (0.8-1.3) mg/dL Est Cr Clr Drug Dosing mL/min Estimated GFR (MDRD) ml/min Glucose (74-106) mg/dL Lactic Acid 0.7 (0.4-2.0) mmol/L Calcium (8.5-10.1) mg/dL Phosphorus (2.6-4.7) mg/dL Magnesium (1.8-2.4) mg/dL Total Bilirubin (0.2-1.0) mg/dL AST (15-37) IU/L ALT (14-63) IU/L Alkaline Phosphatase (46-116) U/L Creatine Kinase (26-308) U/L Total Protein (6.4-8.2) g/dL Albumin (3.4-5.0) g/dL Globulin (2.6-4.0) g/dL Albumin/Globulin Ratio (0.9-1.6) Urine Color Urine Appearance Urine pH (5.0-8.0) Ur Specific [place] (1.001-1.035) Urine Protein (NEGATIVE) mg/dL Urine Glucose (UA) (NEGATIVE) mg/dL Urine Ketones (NEGATIVE) mg/dL Urine Occult Blood (NEGATIVE) Urine Nitrite (NEGATIVE) Urine Bilirubin (NEGATIVE) Urine Urobilinogen (<2.0) EU/dL Ur Leukocyte Esterase (NEGATIVE) Urine RBC (0-2/HPF) Urine WBC (0-5/HPF) Ur Epithelial Cells (NONE-FEW) Urine Bacteria (NEGATIVE) Urine Opiates Screen (NEGATIVE) Ur Oxycodone Screen (NEGATIVE) Urine Methadone Screen (NEGATIVE) Ur Barbiturates Screen (NEGATIVE) Ur Phencyclidine Scrn (NEGATIVE) Ur Amphetamine Screen (NEGATIVE) U Methamphetamines Scrn (NEGATIVE) U Benzodiazepines Scrn (NEGATIVE) U Cocaine Metab Screen (NEGATIVE) U Marijuana (THC) Screen (NEGATIVE) Ethyl Alcohol mg/dL SARS-CoV-2 RNA (BRE) (NEGATIVE) Med Orders - Current: Current Medications Folic Acid (Folic Acid 50 Mg/10 Ml Mdv) 1 mg IV DAILY [facility] Last Admin: 11/04/21 08:47 Dose: 1 mg Documented by: Dextrose/Water (Dextrose 5% In Water) 1,000 mls @ 999 mls/hr IV ASDIRECTED [place] Desmopressin Acetate 2 mcg/ (Sodium Chloride) 50.5 mls @ 100 mls/hr IV Q6HR [place] Last Admin: 11/04/21 12:17 Dose: 100 mls/hr Documented by: Dextrose/Water (Dextrose 5% In Water) 1,000 mls @ 100 mls/hr IV ASDIRECTED [place] Lorazepam (Lorazepam 2 Mg/Ml Sdv) 0 mg IVPUSH Q1H PRN; Protocol PRN Reason: CIWAA Last Admin: 11/04/21 08:47 Dose: 2 mg Documented by: Sodium Chloride (Sodium Chloride 0.9% 10 Ml Syringe) 10 ml FLUSH ASDIRECTED PRN PRN Reason: Keep Vein Open Last Admin: 11/03/21 21:23 Dose: 10 ml Documented by: Sodium Chloride (Sodium Chloride 0.9% 2.5 Ml Syringe) 2.5 ml FLUSH ASDIRECTED PRN PRN Reason: Keep Vein Open Last Admin: 11/03/21 21:24 Dose: 2.5 ml Documented by: Thiamine HCl (Thiamine 200 Mg/2 Ml Mdv) 100 mg IVPUSH DAILY [facility] Last Admin: 11/04/21 10:16 Dose: Not Given Documented by: Discontinued Medications Chlordiazepoxide HCl (Chlordiazepoxide 25 Mg Cap) 25 mg PO ONETIME ONE Stop: 11/04/21 13:29 Desmopressin Acetate (Desmopressin 4 Mcg/1 Ml Amp) 2 mcg SUBCUT ONETIME ONE Stop: 11/04/21 04:32 Last Admin: 11/04/21 05:22 Dose: 2 mcg Documented by: Haloperidol Lactate (Haloperidol Lactate 5 Mg/Ml Sdv) Confirm Administered Dose 10 mg .ROUTE .STK-MED ONE Stop: 11/04/21 04:15 Last Admin: 11/04/21 04:40 Dose: Not Given Documented by: Haloperidol Lactate (Haloperidol Lactate 5 Mg/Ml Sdv) 7 mg IM ONETIME ONE Stop: 11/04/21 04:15 Last Admin: 11/04/21 04:15 Dose: 7 mg Documented by: Lactated Ringer's (Ringers, Lactated) 1,000 mls @ 999 mls/hr IV .BOLUS ONE Stop: 11/03/21 22:15 Last Admin: 11/03/21 21:24 Dose: 999 mls/hr Documented by: Sodium Chloride (Sodium Chloride 3%) 500 mls @ 150 mls/hr IV ASDIRECTED [place] Last Infusion: 11/04/21 00:35 Dose: 0 mls/hr Documented by: Dextrose/Water (Dextrose 5% In Water) 500 mls @ 500 mls/hr IV ASDIRECTED [place] Dextrose/Water (Dextrose 5% In Water) 1,000 mls @ 500 mls/hr IV ASDIRECTED [place] Last Admin: 11/04/21 01:10 Dose: 500 mls/hr Documented by: Lorazepam (Lorazepam 2 Mg/Ml Sdv) 2 mg IVPUSH ONETIME ONE Stop: 11/03/21 21:15 Last Admin: 11/03/21 21:24 Dose: 2 mg Documented by: Lorazepam (Lorazepam 2 Mg/Ml Sdv) Confirm Administered Dose 2 mg .ROUTE .STK-MED ONE Stop: 11/03/21 21:15 Last Admin: 11/03/21 21:20 Dose: Not Given Documented by: Lorazepam (Lorazepam 2 Mg/Ml Sdv) 2 mg IVPUSH ONETIME ONE Stop: 11/03/21 21:31 Last Admin: 11/03/21 21:34 Dose: 2 mg Documented by: Lorazepam (Lorazepam 2 Mg/Ml Sdv) 1 mg IVPUSH ONETIME ONE Stop: 11/03/21 23:03 Last Admin: 11/03/21 23:45 Dose: 1 mg Documented by: Lorazepam (Lorazepam 2 Mg/Ml Sdv) Confirm Administered Dose 2 mg .ROUTE .STK-MED ONE Stop: 11/03/21 23:04 Last Admin: 11/03/21 23:34 Dose: Not Given Documented by: Lorazepam (Lorazepam 2 Mg/Ml Sdv) 1 mg IVPUSH ONETIME ONE Stop: 11/03/21 23:37 Last Admin: 11/03/21 23:45 Dose: 1 mg Documented by: Thiamine HCl (Thiamine 200 Mg/2 Ml Mdv) 400 mg IVPUSH ONETIME ONE Stop: 11/03/21 22:17 Last Admin: 11/03/21 22:29 Dose: 400 mg Documented by: - Exam General: Lethargic Lungs: Clear to Auscultation, Normal Respiratory Effort Cardiovascular: Regular Rate, Regular Rhythm GI/Abdominal Exam: Soft, Non-Tender, No Distention Extremities: Non-Tender, No Pedal Edema Skin: Warm, Dry, Intact Neurological: No New Focal Deficit - Patient Data Lab Results Last 24 hrs: Laboratory Results - last 24 hr 11/03/21 11/03/21 11/03/21 Range/Units 21:12 21:12 21:12 WBC 9.18 (4.0-11.0) K/uL RBC 4.71 (4.50-5.90) M/uL Hgb 14.9 (13.0-17.0) g/dL Hct 39.8 (38.0-50.0) % MCV 84.5 (80.0-98.0) fL MCH 31.6 (27.0-32.0) pg MCHC 37.4 H (31.0-37.0) g/dL RDW Std Deviation 36.4 (28.0-62.0) fl RDW Coeff of Carol 12 (11.0-15.0) % Plt Count 283 (150-400) K/uL MPV 8.90 (7.40-12.00) fL Neut % (Auto) 61.1 (48.0-80.0) % Lymph % (Auto) 29.1 (16.0-40.0) % [place] % (Auto) 8.9 (0.0-15.0) % Eos % (Auto) 0.8 (0.0-7.0) % Baso % (Auto) 0.1 (0.0-1.5) % Neut # (Auto) 5.6 (1.4-5.7) K/uL Lymph # (Auto) 2.7 H (0.6-2.4) K/uL [place] # (Auto) 0.8 (0.0-0.8) K/uL Eos # (Auto) 0.1 (0.0-0.7) K/uL Baso # (Auto) 0.0 (0.0-0.1) K/uL Nucleated RBC % 0.0 /100WBC Nucleated RBCs # 0 K/uL Sodium 119 L* (136-148) mmol/L Potassium 4.1 (3.5-5.1) mmol/L Chloride 84 L (98-107) mmol/L Carbon Dioxide 22.8 (21.0-32.0) mmol/L BUN 12 (7.0-18.0) mg/dL Creatinine 0.8 (0.8-1.3) mg/dL Est Cr Clr Drug Dosing 129.44 mL/min Estimated GFR (MDRD) > 60.0 ml/min Glucose 133 H (74-106) mg/dL Lactic Acid (0.4-2.0) mmol/L Calcium 8.7 (8.5-10.1) mg/dL Phosphorus 2.1 L (2.6-4.7) mg/dL Magnesium 1.7 L (1.8-2.4) mg/dL Total Bilirubin 0.7 (0.2-1.0) mg/dL AST 56 H (15-37) IU/L ALT 105 H (14-63) IU/L Alkaline Phosphatase 110 (46-116) U/L Creatine Kinase 187 (26-308) U/L Total Protein 7.6 (6.4-8.2) g/dL Albumin 4.0 (3.4-5.0) g/dL Globulin 3.6 (2.6-4.0) g/dL Albumin/Globulin Ratio 1.1 (0.9-1.6) Urine Color Urine Appearance Urine pH (5.0-8.0) Ur Specific [place] (1.001-1.035) Urine Protein (NEGATIVE) mg/dL Urine Glucose (UA) (NEGATIVE) mg/dL Urine Ketones (NEGATIVE) mg/dL Urine Occult Blood (NEGATIVE) Urine Nitrite (NEGATIVE) Urine Bilirubin (NEGATIVE) Urine Urobilinogen (<2.0) EU/dL Ur Leukocyte Esterase (NEGATIVE) Urine RBC (0-2/HPF) Urine WBC (0-5/HPF) Ur Epithelial Cells (NONE-FEW) Urine Bacteria (NEGATIVE) Urine Opiates Screen (NEGATIVE) Ur Oxycodone Screen (NEGATIVE) Urine Methadone Screen (NEGATIVE) Ur Barbiturates Screen (NEGATIVE) Ur Phencyclidine Scrn (NEGATIVE) Ur Amphetamine Screen (NEGATIVE) U Methamphetamines Scrn (NEGATIVE) U Benzodiazepines Scrn (NEGATIVE) U Cocaine Metab Screen (NEGATIVE) U Marijuana (THC) Screen (NEGATIVE) Ethyl Alcohol <3 mg/dL SARS-CoV-2 RNA (BRE) (NEGATIVE) 11/03/21 11/03/21 11/03/21 Range/Units 21:20 22:10 22:10 WBC (4.0-11.0) K/uL RBC (4.50-5.90) M/uL Hgb (13.0-17.0) g/dL Hct (38.0-50.0) % MCV (80.0-98.0) fL MCH (27.0-32.0) pg MCHC (31.0-37.0) g/dL RDW Std Deviation (28.0-62.0) fl RDW Coeff of Carol (11.0-15.0) % Plt Count (150-400) K/uL MPV (7.40-12.00) fL Neut % (Auto) (48.0-80.0) % Lymph % (Auto) (16.0-40.0) % [place] % (Auto) (0.0-15.0) % Eos % (Auto) (0.0-7.0) % Baso % (Auto) (0.0-1.5) % Neut # (Auto) (1.4-5.7) K/uL Lymph # (Auto) (0.6-2.4) K/uL [place] # (Auto) (0.0-0.8) K/uL Eos # (Auto) (0.0-0.7) K/uL Baso # (Auto) (0.0-0.1) K/uL Nucleated RBC % /100WBC Nucleated RBCs # K/uL Sodium (136-148) mmol/L Potassium (3.5-5.1) mmol/L Chloride (98-107) mmol/L Carbon Dioxide (21.0-32.0) mmol/L BUN (7.0-18.0) mg/dL Creatinine (0.8-1.3) mg/dL Est Cr Clr Drug Dosing mL/min Estimated GFR (MDRD) ml/min Glucose (74-106) mg/dL Lactic Acid (0.4-2.0) mmol/L Calcium (8.5-10.1) mg/dL Phosphorus (2.6-4.7) mg/dL Magnesium (1.8-2.4) mg/dL Total Bilirubin (0.2-1.0) mg/dL AST (15-37) IU/L ALT (14-63) IU/L Alkaline Phosphatase (46-116) U/L Creatine Kinase (26-308) U/L Total Protein (6.4-8.2) g/dL Albumin (3.4-5.0) g/dL Globulin (2.6-4.0) g/dL Albumin/Globulin Ratio (0.9-1.6) Urine Color YELLOW Urine Appearance CLEAR Urine pH 6.5 (5.0-8.0) Ur Specific [place] 1.010 (1.001-1.035) Urine Protein NEGATIVE (NEGATIVE) mg/dL Urine Glucose (UA) NEGATIVE (NEGATIVE) mg/dL Urine Ketones NEGATIVE (NEGATIVE) mg/dL Urine Occult Blood TRACE-INTACT H (NEGATIVE) Urine Nitrite NEGATIVE (NEGATIVE) Urine Bilirubin NEGATIVE (NEGATIVE) Urine Urobilinogen 0.2 (<2.0) EU/dL Ur Leukocyte Esterase NEGATIVE (NEGATIVE) Urine RBC 0-2 (0-2/HPF) Urine WBC 0-1 (0-5/HPF) Ur Epithelial Cells RARE (NONE-FEW) Urine Bacteria RARE (NEGATIVE) Urine Opiates Screen NEGATIVE (NEGATIVE) Ur Oxycodone Screen NEGATIVE (NEGATIVE) Urine Methadone Screen NEGATIVE (NEGATIVE) Ur Barbiturates Screen NEGATIVE (NEGATIVE) Ur Phencyclidine Scrn NEGATIVE (NEGATIVE) Ur Amphetamine Screen POSITIVE (NEGATIVE) U Methamphetamines Scrn NEGATIVE (NEGATIVE) U Benzodiazepines Scrn NEGATIVE (NEGATIVE) U Cocaine Metab Screen NEGATIVE (NEGATIVE) U Marijuana (THC) Screen NEGATIVE (NEGATIVE) Ethyl Alcohol mg/dL SARS-CoV-2 RNA (BRE) NEGATIVE (NEGATIVE) 11/03/21 11/04/21 11/04/21 Range/Units 22:28 00:00 01:03 WBC (4.0-11.0) K/uL RBC (4.50-5.90) M/uL Hgb (13.0-17.0) g/dL Hct (38.0-50.0) % MCV (80.0-98.0) fL MCH (27.0-32.0) pg MCHC (31.0-37.0) g/dL RDW Std Deviation (28.0-62.0) fl RDW Coeff of Carol (11.0-15.0) % Plt Count (150-400) K/uL MPV (7.40-12.00) fL Neut % (Auto) (48.0-80.0) % Lymph % (Auto) (16.0-40.0) % [place] % (Auto) (0.0-15.0) % Eos % (Auto) (0.0-7.0) % Baso % (Auto) (0.0-1.5) % Neut # (Auto) (1.4-5.7) K/uL Lymph # (Auto) (0.6-2.4) K/uL [place] # (Auto) (0.0-0.8) K/uL Eos # (Auto) (0.0-0.7) K/uL Baso # (Auto) (0.0-0.1) K/uL Nucleated RBC % /100WBC Nucleated RBCs # K/uL Sodium 123 L 131 L 136 (136-148) mmol/L Potassium (3.5-5.1) mmol/L Chloride (98-107) mmol/L Carbon Dioxide (21.0-32.0) mmol/L BUN (7.0-18.0) mg/dL Creatinine (0.8-1.3) mg/dL Est Cr Clr Drug Dosing mL/min Estimated GFR (MDRD) ml/min Glucose (74-106) mg/dL Lactic Acid (0.4-2.0) mmol/L Calcium (8.5-10.1) mg/dL Phosphorus (2.6-4.7) mg/dL Magnesium (1.8-2.4) mg/dL Total Bilirubin (0.2-1.0) mg/dL AST (15-37) IU/L ALT (14-63) IU/L Alkaline Phosphatase (46-116) U/L Creatine Kinase (26-308) U/L Total Protein (6.4-8.2) g/dL Albumin (3.4-5.0) g/dL Globulin (2.6-4.0) g/dL Albumin/Globulin Ratio (0.9-1.6) Urine Color Urine Appearance Urine pH (5.0-8.0) Ur Specific [place] (1.001-1.035) Urine Protein (NEGATIVE) mg/dL Urine Glucose (UA) (NEGATIVE) mg/dL Urine Ketones (NEGATIVE) mg/dL Urine Occult Blood (NEGATIVE) Urine Nitrite (NEGATIVE) Urine Bilirubin (NEGATIVE) Urine Urobilinogen (<2.0) EU/dL Ur Leukocyte Esterase (NEGATIVE) Urine RBC (0-2/HPF) Urine WBC (0-5/HPF) Ur Epithelial Cells (NONE-FEW) Urine Bacteria (NEGATIVE) Urine Opiates Screen (NEGATIVE) Ur Oxycodone Screen (NEGATIVE) Urine Methadone Screen (NEGATIVE) Ur Barbiturates Screen (NEGATIVE) Ur Phencyclidine Scrn (NEGATIVE) Ur Amphetamine Screen (NEGATIVE) U Methamphetamines Scrn (NEGATIVE) U Benzodiazepines Scrn (NEGATIVE) U Cocaine Metab Screen (NEGATIVE) U Marijuana (THC) Screen (NEGATIVE) Ethyl Alcohol mg/dL SARS-CoV-2 RNA (BRE) (NEGATIVE) 11/04/21 11/04/21 11/04/21 Range/Units 01:59 03:05 04:03 WBC (4.0-11.0) K/uL RBC (4.50-5.90) M/uL Hgb (13.0-17.0) g/dL Hct (38.0-50.0) % MCV (80.0-98.0) fL MCH (27.0-32.0) pg MCHC (31.0-37.0) g/dL RDW Std Deviation (28.0-62.0) fl RDW Coeff of Carol (11.0-15.0) % Plt Count (150-400) K/uL MPV (7.40-12.00) fL Neut % (Auto) (48.0-80.0) % Lymph % (Auto) (16.0-40.0) % [place] % (Auto) (0.0-15.0) % Eos % (Auto) (0.0-7.0) % Baso % (Auto) (0.0-1.5) % Neut # (Auto) (1.4-5.7) K/uL Lymph # (Auto) (0.6-2.4) K/uL [place] # (Auto) (0.0-0.8) K/uL Eos # (Auto) (0.0-0.7) K/uL Baso # (Auto) (0.0-0.1) K/uL Nucleated RBC % /100WBC Nucleated RBCs # K/uL Sodium 138 137 138 (136-148) mmol/L Potassium (3.5-5.1) mmol/L Chloride (98-107) mmol/L Carbon Dioxide (21.0-32.0) mmol/L BUN (7.0-18.0) mg/dL Creatinine (0.8-1.3) mg/dL Est Cr Clr Drug Dosing mL/min Estimated GFR (MDRD) ml/min Glucose (74-106) mg/dL Lactic Acid (0.4-2.0) mmol/L Calcium (8.5-10.1) mg/dL Phosphorus (2.6-4.7) mg/dL Magnesium (1.8-2.4) mg/dL Total Bilirubin (0.2-1.0) mg/dL AST (15-37) IU/L ALT (14-63) IU/L Alkaline Phosphatase (46-116) U/L Creatine Kinase (26-308) U/L Total Protein (6.4-8.2) g/dL Albumin (3.4-5.0) g/dL Globulin (2.6-4.0) g/dL Albumin/Globulin Ratio (0.9-1.6) Urine Color Urine Appearance Urine pH (5.0-8.0) Ur Specific [place] (1.001-1.035) Urine Protein (NEGATIVE) mg/dL Urine Glucose (UA) (NEGATIVE) mg/dL Urine Ketones (NEGATIVE) mg/dL Urine Occult Blood (NEGATIVE) Urine Nitrite (NEGATIVE) Urine Bilirubin (NEGATIVE) Urine Urobilinogen (<2.0) EU/dL Ur Leukocyte Esterase (NEGATIVE) Urine RBC (0-2/HPF) Urine WBC (0-5/HPF) Ur Epithelial Cells (NONE-FEW) Urine Bacteria (NEGATIVE) Urine Opiates Screen (NEGATIVE) Ur Oxycodone Screen (NEGATIVE) Urine Methadone Screen (NEGATIVE) Ur Barbiturates Screen (NEGATIVE) Ur Phencyclidine Scrn (NEGATIVE) Ur Amphetamine Screen (NEGATIVE) U Methamphetamines Scrn (NEGATIVE) U Benzodiazepines Scrn (NEGATIVE) U Cocaine Metab Screen (NEGATIVE) U Marijuana (THC) Screen (NEGATIVE) Ethyl Alcohol mg/dL SARS-CoV-2 RNA (BRE) (NEGATIVE) 11/04/21 11/04/21 11/04/21 Range/Units 05:00 06:00 06:00 WBC 9.77 (4.0-11.0) K/uL RBC 4.86 (4.50-5.90) M/uL Hgb 15.3 (13.0-17.0) g/dL Hct 40.7 (38.0-50.0) % MCV 83.7 (80.0-98.0) fL MCH 31.5 (27.0-32.0) pg MCHC 37.6 H (31.0-37.0) g/dL RDW Std Deviation 36.6 (28.0-62.0) fl RDW Coeff of Carol 12 (11.0-15.0) % Plt Count 320 (150-400) K/uL MPV 9.30 (7.40-12.00) fL Neut % (Auto) (48.0-80.0) % Lymph % (Auto) (16.0-40.0) % [place] % (Auto) (0.0-15.0) % Eos % (Auto) (0.0-7.0) % Baso % (Auto) (0.0-1.5) % Neut # (Auto) (1.4-5.7) K/uL Lymph # (Auto) (0.6-2.4) K/uL [place] # (Auto) (0.0-0.8) K/uL Eos # (Auto) (0.0-0.7) K/uL Baso # (Auto) (0.0-0.1) K/uL Nucleated RBC % 0.0 /100WBC Nucleated RBCs # 0 K/uL Sodium 140 138 (136-148) mmol/L Potassium 4.3 (3.5-5.1) mmol/L Chloride 105 (98-107) mmol/L Carbon Dioxide 25.1 (21.0-32.0) mmol/L BUN 9 (7.0-18.0) mg/dL Creatinine 0.7 L (0.8-1.3) mg/dL Est Cr Clr Drug Dosing 147.93 mL/min Estimated GFR (MDRD) > 60.0 ml/min Glucose 87 (74-106) mg/dL Lactic Acid (0.4-2.0) mmol/L Calcium 8.7 (8.5-10.1) mg/dL Phosphorus 3.6 (2.6-4.7) mg/dL Magnesium 2.1 (1.8-2.4) mg/dL Total Bilirubin 0.7 (0.2-1.0) mg/dL AST 51 H (15-37) IU/L ALT 90 H (14-63) IU/L Alkaline Phosphatase 106 (46-116) U/L Creatine Kinase (26-308) U/L Total Protein 6.7 (6.4-8.2) g/dL Albumin 3.9 (3.4-5.0) g/dL Globulin 2.8 (2.6-4.0) g/dL Albumin/Globulin Ratio 1.4 (0.9-1.6) Urine Color Urine Appearance Urine pH (5.0-8.0) Ur Specific [place] (1.001-1.035) Urine Protein (NEGATIVE) mg/dL Urine Glucose (UA) (NEGATIVE) mg/dL Urine Ketones (NEGATIVE) mg/dL Urine Occult Blood (NEGATIVE) Urine Nitrite (NEGATIVE) Urine Bilirubin (NEGATIVE) Urine Urobilinogen (<2.0) EU/dL Ur Leukocyte Esterase (NEGATIVE) Urine RBC (0-2/HPF) Urine WBC (0-5/HPF) Ur Epithelial Cells (NONE-FEW) Urine Bacteria (NEGATIVE) Urine Opiates Screen (NEGATIVE) Ur Oxycodone Screen (NEGATIVE) Urine Methadone Screen (NEGATIVE) Ur Barbiturates Screen (NEGATIVE) Ur Phencyclidine Scrn (NEGATIVE) Ur Amphetamine Screen (NEGATIVE) U Methamphetamines Scrn (NEGATIVE) U Benzodiazepines Scrn (NEGATIVE) U Cocaine Metab Screen (NEGATIVE) U Marijuana (THC) Screen (NEGATIVE) Ethyl Alcohol mg/dL SARS-CoV-2 RNA (BRE) (NEGATIVE) 11/04/21 11/04/21 Range/Units 10:05 10:05 WBC (4.0-11.0) K/uL RBC (4.50-5.90) M/uL Hgb (13.0-17.0) g/dL Hct (38.0-50.0) % MCV (80.0-98.0) fL MCH (27.0-32.0) pg MCHC (31.0-37.0) g/dL RDW Std Deviation (28.0-62.0) fl RDW Coeff of Carol (11.0-15.0) % Plt Count (150-400) K/uL MPV (7.40-12.00) fL Neut % (Auto) (48.0-80.0) % Lymph % (Auto) (16.0-40.0) % [place] % (Auto) (0.0-15.0) % Eos % (Auto) (0.0-7.0) % Baso % (Auto) (0.0-1.5) % Neut # (Auto) (1.4-5.7) K/uL Lymph # (Auto) (0.6-2.4) K/uL [place] # (Auto) (0.0-0.8) K/uL Eos # (Auto) (0.0-0.7) K/uL Baso # (Auto) (0.0-0.1) K/uL Nucleated RBC % /100WBC Nucleated RBCs # K/uL Sodium 137 (136-148) mmol/L Potassium (3.5-5.1) mmol/L Chloride (98-107) mmol/L Carbon Dioxide (21.0-32.0) mmol/L BUN (7.0-18.0) mg/dL Creatinine (0.8-1.3) mg/dL Est Cr Clr Drug Dosing mL/min Estimated GFR (MDRD) ml/min Glucose (74-106) mg/dL Lactic Acid 0.7 (0.4-2.0) mmol/L Calcium (8.5-10.1) mg/dL Phosphorus (2.6-4.7) mg/dL Magnesium (1.8-2.4) mg/dL Total Bilirubin (0.2-1.0) mg/dL AST (15-37) IU/L ALT (14-63) IU/L Alkaline Phosphatase (46-116) U/L Creatine Kinase (26-308) U/L Total Protein (6.4-8.2) g/dL Albumin (3.4-5.0) g/dL Globulin (2.6-4.0) g/dL Albumin/Globulin Ratio (0.9-1.6) Urine Color Urine Appearance Urine pH (5.0-8.0) Ur Specific [place] (1.001-1.035) Urine Protein (NEGATIVE) mg/dL Urine Glucose (UA) (NEGATIVE) mg/dL Urine Ketones (NEGATIVE) mg/dL Urine Occult Blood (NEGATIVE) Urine Nitrite (NEGATIVE) Urine Bilirubin (NEGATIVE) Urine Urobilinogen (<2.0) EU/dL Ur Leukocyte Esterase (NEGATIVE) Urine RBC (0-2/HPF) Urine WBC (0-5/HPF) Ur Epithelial Cells (NONE-FEW) Urine Bacteria (NEGATIVE) Urine Opiates Screen (NEGATIVE) Ur Oxycodone Screen (NEGATIVE) Urine Methadone Screen (NEGATIVE) Ur Barbiturates Screen (NEGATIVE) Ur Phencyclidine Scrn (NEGATIVE) Ur Amphetamine Screen (NEGATIVE) U Methamphetamines Scrn (NEGATIVE) U Benzodiazepines Scrn (NEGATIVE) U Cocaine Metab Screen (NEGATIVE) U Marijuana (THC) Screen (NEGATIVE) Ethyl Alcohol mg/dL SARS-CoV-2 RNA (BRE) (NEGATIVE) Result Diagrams: 11/04/21 06:00 11/04/21 10:05 Sepsis Event Note - Evaluation Sepsis Screening Result: No Definite Risk - Focused Exam Vital Signs: Vital Signs Temp Resp BP Pulse Ox 11/04/21 10:00 22 H 99 11/04/21 09:00 36.2 C 23 H 117/65 97 11/04/21 08:00 36.2 C 18 114/67 97 11/04/21 07:00 19 105/39 L 100 11/04/21 06:00 16 113/60 98 11/04/21 05:00 19 107/53 L 98 11/04/21 04:00 36.2 C 22 H 97 11/04/21 03:00 15 95 11/04/21 02:00 16 110/59 L 97 - Problem List & Annotations (1) Hyponatremia SNOMED Code(s): 77047878 Code(s): E87.1 - HYPO-OSMOLALITY AND HYPONATREMIA Status: Acute Current Visit: Yes (2) Seizure SNOMED Code(s): 66194515 Code(s): R56.9 - UNSPECIFIED CONVULSIONS Status: Acute Current Visit: Yes - Problem List Review Problem List Initiated/Reviewed/Updated: Yes - My Orders Last 24 Hours: My Active Orders 11/03/21 23:03 LORazepam [Ativan] See Protocol IVPUSH Q1H PRN 11/03/21 23:20 Oxygen Therapy [RC] PRN Up ad Mallorie [RC] ASDIRECTED VTE/DVT Education [RC] PER UNIT ROUTINE Vital Signs [RC] Q1H Sequential Compression Device [OM.PC] Per Unit Routine Resuscitation Status Routine 11/03/21 23:21 Antiembolic Devices [RC] PER UNIT ROUTINE 11/04/21 09:00 Thiamine [Vitamin B-1] 100 mg IVPUSH DAILY 11/04/21 10:15 Dextrose 5% in Water 1,000 ml IV ASDIRECTED 11/04/21 12:00 Desmopressin 2 mcg Sodium Chloride 0.9% [Normal Saline] 50 ml IV Q6HR 11/04/21 Dinner Adult Diet [DIET] 11/05/21 05:11 COMPREHENSIVE METABOLIC PN,CMP [CHEM] AM MAGNESIUM [CHEM] AM PHOSPHORUS [CHEM] AM 11/06/21 05:11 COMPREHENSIVE METABOLIC PN,CMP [CHEM] AM MAGNESIUM [CHEM] AM PHOSPHORUS [CHEM] AM 11/07/21 05:11 COMPREHENSIVE METABOLIC PN,CMP [CHEM] AM MAGNESIUM [CHEM] AM PHOSPHORUS [CHEM] AM - Plan Plan:: 31 yo male with suspect drug/ETOH abuse admitted following seizure and found to have severe hyponatremia. Hyponatremia: sodium is 137 will give desmopressen and D5W to lower sodium to a more appropriate rate of correction. suspected ETOH abuse: will place on CIWAA protocol, with prn Ativan, folic acid and thiamin Patient is confused and combative with nurses will give Librium and haldol may need to consider soft restraints if he is a danger to himself and staff and unable to cooperate with cares.
--- NOTE | 2021-11-04 13:58 | PCM.PRNOTE ---
- Free Text/Narrative Note: Anes Note IV Access I was called to provide IV access for this patient with known diffiuclt venipuncture. A 22TN was placed in the left inner forarm. Flushes with ease. Site secured with sterile clear adhesive. Time with patient [id number] Abel Flynn CRNA
--- NOTE | 2021-11-04 21:43 | PCM.DCSUM1 ---
Discharge Summary - Discharge Data Discharge Date: 11/04/21 Discharge Disposition: Against Medical Advice 07 Preliminary Cause of *Q: Multi System Organ Failure (/) Condition: Fair - Referral to Home Health Primary Care Physician: PCP None - Discharge Diagnosis/Problem(s) (1) Hyponatremia SNOMED Code(s): 23232633 ICD Code: E87.1 - HYPO-OSMOLALITY AND HYPONATREMIA Status: Acute (2) Seizure SNOMED Code(s): 92766339 ICD Code: R56.9 - UNSPECIFIED CONVULSIONS Status: Acute - Patient Summary/Data Hospital Course: 31 yo male who was admitted for hyponatremia after having a seizure in Shelter. Patient's sodium was 119 on admission. He was given a liter of lactated ringer with rapid correction of his sodium. He was lethargic and agitated on admissio n. He was given Ativan prn and Librium. During his hospital course he did have improvement in his mentation and the more alert he became the more unwilling he was in cooperating with nurses regarding his cares. He would remove his IV multiple times. He was instructed on the need to relower his sodium as he was at risk of developing severe neurological complications. As patients mentation has improved and he has capacity he signed out AMA. He left with his girlfriend. - Discharge Plan *PRESCRIPTION DRUG MONITORING PROGRAM REVIEWED*: Not Applicable *COPY OF PRESCRIPTION DRUG MONITORING REPORT IN PATIENT MARIE: Not Applicable Home Medications: Home Meds . [No Known Home Meds] 11/03/21 [History] Patient Handouts: Amphetamines Use Disorder, Hyponatremia, Finding Treatment for Addiction, Seizure, Adult Forms: ED Department Discharge Referrals: PCP,None [Primary Care Provider] - - Discharge Summary/Plan Comment DC Time >30 min.: No Total # of Minutes for Discharge Time: 15 - Patient Data Vitals - Most Recent: Last Vital Signs Temp 36.6 C 11/04/21 15:00 Pulse 62 11/04/21 00:19 Resp 23 H 11/04/21 15:00 BP 115/90 11/04/21 15:00 Pulse Ox 98 11/04/21 15:00 Weight - Most Recent: 70.307 kg I&O - Last 24 hours: Intake & Output 11/04/21 11/04/21 11/04/21 06:59 14:59 22:59 Intake Total 1630 1200 Output Total 7700 1600 Balance -9827 -400 Lab Results - Last 24 hrs: Laboratory Results - last 24 hr 11/03/21 11/03/21 11/03/21 Range/Units 21:12 21:12 21:12 WBC (4.0-11.0) K/uL RBC (4.50-5.90) M/uL Hgb (13.0-17.0) g/dL Hct (38.0-50.0) % MCV (80.0-98.0) fL MCH (27.0-32.0) pg MCHC (31.0-37.0) g/dL RDW Std Deviation (28.0-62.0) fl RDW Coeff of Carol (11.0-15.0) % Plt Count (150-400) K/uL MPV (7.40-12.00) fL Nucleated RBC % /100WBC Nucleated RBCs # K/uL Sodium 119 L* (136-148) mmol/L Potassium 4.1 (3.5-5.1) mmol/L Chloride 84 L (98-107) mmol/L Carbon Dioxide 22.8 (21.0-32.0) mmol/L BUN 12 (7.0-18.0) mg/dL Creatinine 0.8 (0.8-1.3) mg/dL Est Cr Clr Drug Dosing 129.44 mL/min Estimated GFR (MDRD) > 60.0 ml/min Glucose 133 H (74-106) mg/dL Serum Osmolality 248 L (275-295) mosm/kg Lactic Acid (0.4-2.0) mmol/L Calcium 8.7 (8.5-10.1) mg/dL Phosphorus 2.1 L (2.6-4.7) mg/dL Magnesium 1.7 L (1.8-2.4) mg/dL Total Bilirubin 0.7 (0.2-1.0) mg/dL AST 56 H (15-37) IU/L ALT 105 H (14-63) IU/L Alkaline Phosphatase 110 (46-116) U/L Creatine Kinase 187 (26-308) U/L Total Protein 7.6 (6.4-8.2) g/dL Albumin 4.0 (3.4-5.0) g/dL Globulin 3.6 (2.6-4.0) g/dL Albumin/Globulin Ratio 1.1 (0.9-1.6) Urine Color Urine Appearance Urine pH (5.0-8.0) Ur Specific Cedar (1.001-1.035) Urine Protein (NEGATIVE) mg/dL Urine Glucose (UA) (NEGATIVE) mg/dL Urine Ketones (NEGATIVE) mg/dL Urine Occult Blood (NEGATIVE) Urine Nitrite (NEGATIVE) Urine Bilirubin (NEGATIVE) Urine Urobilinogen (<2.0) EU/dL Ur Leukocyte Esterase (NEGATIVE) Urine RBC (0-2/HPF) Urine WBC (0-5/HPF) Ur Epithelial Cells (NONE-FEW) Urine Bacteria (NEGATIVE) Urine Opiates Screen (NEGATIVE) Ur Oxycodone Screen (NEGATIVE) Urine Methadone Screen (NEGATIVE) Ur Barbiturates Screen (NEGATIVE) Ur Phencyclidine Scrn (NEGATIVE) Ur Amphetamine Screen (NEGATIVE) U Methamphetamines Scrn (NEGATIVE) U Benzodiazepines Scrn (NEGATIVE) U Cocaine Metab Screen (NEGATIVE) U Marijuana (THC) Screen (NEGATIVE) Ethyl Alcohol <3 mg/dL SARS-CoV-2 RNA (BRE) (NEGATIVE) 11/03/21 11/03/21 11/03/21 Range/Units 21:20 22:10 22:10 WBC (4.0-11.0) K/uL RBC (4.50-5.90) M/uL Hgb (13.0-17.0) g/dL Hct (38.0-50.0) % MCV (80.0-98.0) fL MCH (27.0-32.0) pg MCHC (31.0-37.0) g/dL RDW Std Deviation (28.0-62.0) fl RDW Coeff of Carol (11.0-15.0) % Plt Count (150-400) K/uL MPV (7.40-12.00) fL Nucleated RBC % /100WBC Nucleated RBCs # K/uL Sodium (136-148) mmol/L Potassium (3.5-5.1) mmol/L Chloride (98-107) mmol/L Carbon Dioxide (21.0-32.0) mmol/L BUN (7.0-18.0) mg/dL Creatinine (0.8-1.3) mg/dL Est Cr Clr Drug Dosing mL/min Estimated GFR (MDRD) ml/min Glucose (74-106) mg/dL Serum Osmolality (275-295) mosm/kg Lactic Acid (0.4-2.0) mmol/L Calcium (8.5-10.1) mg/dL Phosphorus (2.6-4.7) mg/dL Magnesium (1.8-2.4) mg/dL Total Bilirubin (0.2-1.0) mg/dL AST (15-37) IU/L ALT (14-63) IU/L Alkaline Phosphatase (46-116) U/L Creatine Kinase (26-308) U/L Total Protein (6.4-8.2) g/dL Albumin (3.4-5.0) g/dL Globulin (2.6-4.0) g/dL Albumin/Globulin Ratio (0.9-1.6) Urine Color YELLOW Urine Appearance CLEAR Urine pH 6.5 (5.0-8.0) Ur Specific Cedar 1.010 (1.001-1.035) Urine Protein NEGATIVE (NEGATIVE) mg/dL Urine Glucose (UA) NEGATIVE (NEGATIVE) mg/dL Urine Ketones NEGATIVE (NEGATIVE) mg/dL Urine Occult Blood TRACE-INTACT H (NEGATIVE) Urine Nitrite NEGATIVE (NEGATIVE) Urine Bilirubin NEGATIVE (NEGATIVE) Urine Urobilinogen 0.2 (<2.0) EU/dL Ur Leukocyte Esterase NEGATIVE (NEGATIVE) Urine RBC 0-2 (0-2/HPF) Urine WBC 0-1 (0-5/HPF) Ur Epithelial Cells RARE (NONE-FEW) Urine Bacteria RARE (NEGATIVE) Urine Opiates Screen NEGATIVE (NEGATIVE) Ur Oxycodone Screen NEGATIVE (NEGATIVE) Urine Methadone Screen NEGATIVE (NEGATIVE) Ur Barbiturates Screen NEGATIVE (NEGATIVE) Ur Phencyclidine Scrn NEGATIVE (NEGATIVE) Ur Amphetamine Screen POSITIVE (NEGATIVE) U Methamphetamines Scrn NEGATIVE (NEGATIVE) U Benzodiazepines Scrn NEGATIVE (NEGATIVE) U Cocaine Metab Screen NEGATIVE (NEGATIVE) U Marijuana (THC) Screen NEGATIVE (NEGATIVE) Ethyl Alcohol mg/dL SARS-CoV-2 RNA (BRE) NEGATIVE (NEGATIVE) 11/03/21 11/04/21 11/04/21 Range/Units 22:28 00:00 01:03 WBC (4.0-11.0) K/uL RBC (4.50-5.90) M/uL Hgb (13.0-17.0) g/dL Hct (38.0-50.0) % MCV (80.0-98.0) fL MCH (27.0-32.0) pg MCHC (31.0-37.0) g/dL RDW Std Deviation (28.0-62.0) fl RDW Coeff of Carol (11.0-15.0) % Plt Count (150-400) K/uL MPV (7.40-12.00) fL Nucleated RBC % /100WBC Nucleated RBCs # K/uL Sodium 123 L 131 L 136 (136-148) mmol/L Potassium (3.5-5.1) mmol/L Chloride (98-107) mmol/L Carbon Dioxide (21.0-32.0) mmol/L BUN (7.0-18.0) mg/dL Creatinine (0.8-1.3) mg/dL Est Cr Clr Drug Dosing mL/min Estimated GFR (MDRD) ml/min Glucose (74-106) mg/dL Serum Osmolality (275-295) mosm/kg Lactic Acid (0.4-2.0) mmol/L Calcium (8.5-10.1) mg/dL Phosphorus (2.6-4.7) mg/dL Magnesium (1.8-2.4) mg/dL Total Bilirubin (0.2-1.0) mg/dL AST (15-37) IU/L ALT (14-63) IU/L Alkaline Phosphatase (46-116) U/L Creatine Kinase (26-308) U/L Total Protein (6.4-8.2) g/dL Albumin (3.4-5.0) g/dL Globulin (2.6-4.0) g/dL Albumin/Globulin Ratio (0.9-1.6) Urine Color Urine Appearance Urine pH (5.0-8.0) Ur Specific Cedar (1.001-1.035) Urine Protein (NEGATIVE) mg/dL Urine Glucose (UA) (NEGATIVE) mg/dL Urine Ketones (NEGATIVE) mg/dL Urine Occult Blood (NEGATIVE) Urine Nitrite (NEGATIVE) Urine Bilirubin (NEGATIVE) Urine Urobilinogen (<2.0) EU/dL Ur Leukocyte Esterase (NEGATIVE) Urine RBC (0-2/HPF) Urine WBC (0-5/HPF) Ur Epithelial Cells (NONE-FEW) Urine Bacteria (NEGATIVE) Urine Opiates Screen (NEGATIVE) Ur Oxycodone Screen (NEGATIVE) Urine Methadone Screen (NEGATIVE) Ur Barbiturates Screen (NEGATIVE) Ur Phencyclidine Scrn (NEGATIVE) Ur Amphetamine Screen (NEGATIVE) U Methamphetamines Scrn (NEGATIVE) U Benzodiazepines Scrn (NEGATIVE) U Cocaine Metab Screen (NEGATIVE) U Marijuana (THC) Screen (NEGATIVE) Ethyl Alcohol mg/dL SARS-CoV-2 RNA (BRE) (NEGATIVE) 11/04/21 11/04/21 11/04/21 Range/Units 01:59 03:05 04:03 WBC (4.0-11.0) K/uL RBC (4.50-5.90) M/uL Hgb (13.0-17.0) g/dL Hct (38.0-50.0) % MCV (80.0-98.0) fL MCH (27.0-32.0) pg MCHC (31.0-37.0) g/dL RDW Std Deviation (28.0-62.0) fl RDW Coeff of Carol (11.0-15.0) % Plt Count (150-400) K/uL MPV (7.40-12.00) fL Nucleated RBC % /100WBC Nucleated RBCs # K/uL Sodium 138 137 138 (136-148) mmol/L Potassium (3.5-5.1) mmol/L Chloride (98-107) mmol/L Carbon Dioxide (21.0-32.0) mmol/L BUN (7.0-18.0) mg/dL Creatinine (0.8-1.3) mg/dL Est Cr Clr Drug Dosing mL/min Estimated GFR (MDRD) ml/min Glucose (74-106) mg/dL Serum Osmolality (275-295) mosm/kg Lactic Acid (0.4-2.0) mmol/L Calcium (8.5-10.1) mg/dL Phosphorus (2.6-4.7) mg/dL Magnesium (1.8-2.4) mg/dL Total Bilirubin (0.2-1.0) mg/dL AST (15-37) IU/L ALT (14-63) IU/L Alkaline Phosphatase (46-116) U/L Creatine Kinase (26-308) U/L Total Protein (6.4-8.2) g/dL Albumin (3.4-5.0) g/dL Globulin (2.6-4.0) g/dL Albumin/Globulin Ratio (0.9-1.6) Urine Color Urine Appearance Urine pH (5.0-8.0) Ur Specific Cedar (1.001-1.035) Urine Protein (NEGATIVE) mg/dL Urine Glucose (UA) (NEGATIVE) mg/dL Urine Ketones (NEGATIVE) mg/dL Urine Occult Blood (NEGATIVE) Urine Nitrite (NEGATIVE) Urine Bilirubin (NEGATIVE) Urine Urobilinogen (<2.0) EU/dL Ur Leukocyte Esterase (NEGATIVE) Urine RBC (0-2/HPF) Urine WBC (0-5/HPF) Ur Epithelial Cells (NONE-FEW) Urine Bacteria (NEGATIVE) Urine Opiates Screen (NEGATIVE) Ur Oxycodone Screen (NEGATIVE) Urine Methadone Screen (NEGATIVE) Ur Barbiturates Screen (NEGATIVE) Ur Phencyclidine Scrn (NEGATIVE) Ur Amphetamine Screen (NEGATIVE) U Methamphetamines Scrn (NEGATIVE) U Benzodiazepines Scrn (NEGATIVE) U Cocaine Metab Screen (NEGATIVE) U Marijuana (THC) Screen (NEGATIVE) Ethyl Alcohol mg/dL SARS-CoV-2 RNA (BRE) (NEGATIVE) 11/04/21 11/04/21 11/04/21 Range/Units 05:00 06:00 06:00 WBC 9.77 (4.0-11.0) K/uL RBC 4.86 (4.50-5.90) M/uL Hgb 15.3 (13.0-17.0) g/dL Hct 40.7 (38.0-50.0) % MCV 83.7 (80.0-98.0) fL MCH 31.5 (27.0-32.0) pg MCHC 37.6 H (31.0-37.0) g/dL RDW Std Deviation 36.6 (28.0-62.0) fl RDW Coeff of Carol 12 (11.0-15.0) % Plt Count 320 (150-400) K/uL MPV 9.30 (7.40-12.00) fL Nucleated RBC % 0.0 /100WBC Nucleated RBCs # 0 K/uL Sodium 140 138 (136-148) mmol/L Potassium 4.3 (3.5-5.1) mmol/L Chloride 105 (98-107) mmol/L Carbon Dioxide 25.1 (21.0-32.0) mmol/L BUN 9 (7.0-18.0) mg/dL Creatinine 0.7 L (0.8-1.3) mg/dL Est Cr Clr Drug Dosing 147.93 mL/min Estimated GFR (MDRD) > 60.0 ml/min Glucose 87 (74-106) mg/dL Serum Osmolality (275-295) mosm/kg Lactic Acid (0.4-2.0) mmol/L Calcium 8.7 (8.5-10.1) mg/dL Phosphorus 3.6 (2.6-4.7) mg/dL Magnesium 2.1 (1.8-2.4) mg/dL Total Bilirubin 0.7 (0.2-1.0) mg/dL AST 51 H (15-37) IU/L ALT 90 H (14-63) IU/L Alkaline Phosphatase 106 (46-116) U/L Creatine Kinase (26-308) U/L Total Protein 6.7 (6.4-8.2) g/dL Albumin 3.9 (3.4-5.0) g/dL Globulin 2.8 (2.6-4.0) g/dL Albumin/Globulin Ratio 1.4 (0.9-1.6) Urine Color Urine Appearance Urine pH (5.0-8.0) Ur Specific Cedar (1.001-1.035) Urine Protein (NEGATIVE) mg/dL Urine Glucose (UA) (NEGATIVE) mg/dL Urine Ketones (NEGATIVE) mg/dL Urine Occult Blood (NEGATIVE) Urine Nitrite (NEGATIVE) Urine Bilirubin (NEGATIVE) Urine Urobilinogen (<2.0) EU/dL Ur Leukocyte Esterase (NEGATIVE) Urine RBC (0-2/HPF) Urine WBC (0-5/HPF) Ur Epithelial Cells (NONE-FEW) Urine Bacteria (NEGATIVE) Urine Opiates Screen (NEGATIVE) Ur Oxycodone Screen (NEGATIVE) Urine Methadone Screen (NEGATIVE) Ur Barbiturates Screen (NEGATIVE) Ur Phencyclidine Scrn (NEGATIVE) Ur Amphetamine Screen (NEGATIVE) U Methamphetamines Scrn (NEGATIVE) U Benzodiazepines Scrn (NEGATIVE) U Cocaine Metab Screen (NEGATIVE) U Marijuana (THC) Screen (NEGATIVE) Ethyl Alcohol mg/dL SARS-CoV-2 RNA (BRE) (NEGATIVE) 11/04/21 11/04/21 11/04/21 Range/Units 10:05 10:05 14:05 WBC (4.0-11.0) K/uL RBC (4.50-5.90) M/uL Hgb (13.0-17.0) g/dL Hct (38.0-50.0) % MCV (80.0-98.0) fL MCH (27.0-32.0) pg MCHC (31.0-37.0) g/dL RDW Std Deviation (28.0-62.0) fl RDW Coeff of Carol (11.0-15.0) % Plt Count (150-400) K/uL MPV (7.40-12.00) fL Nucleated RBC % /100WBC Nucleated RBCs # K/uL Sodium 137 139 (136-148) mmol/L Potassium (3.5-5.1) mmol/L Chloride (98-107) mmol/L Carbon Dioxide (21.0-32.0) mmol/L BUN (7.0-18.0) mg/dL Creatinine (0.8-1.3) mg/dL Est Cr Clr Drug Dosing mL/min Estimated GFR (MDRD) ml/min Glucose (74-106) mg/dL Serum Osmolality (275-295) mosm/kg Lactic Acid 0.7 (0.4-2.0) mmol/L Calcium (8.5-10.1) mg/dL Phosphorus (2.6-4.7) mg/dL Magnesium (1.8-2.4) mg/dL Total Bilirubin (0.2-1.0) mg/dL AST (15-37) IU/L ALT (14-63) IU/L Alkaline Phosphatase (46-116) U/L Creatine Kinase (26-308) U/L Total Protein (6.4-8.2) g/dL Albumin (3.4-5.0) g/dL Globulin (2.6-4.0) g/dL Albumin/Globulin Ratio (0.9-1.6) Urine Color Urine Appearance Urine pH (5.0-8.0) Ur Specific Cedar (1.001-1.035) Urine Protein (NEGATIVE) mg/dL Urine Glucose (UA) (NEGATIVE) mg/dL Urine Ketones (NEGATIVE) mg/dL Urine Occult Blood (NEGATIVE) Urine Nitrite (NEGATIVE) Urine Bilirubin (NEGATIVE) Urine Urobilinogen (<2.0) EU/dL Ur Leukocyte Esterase (NEGATIVE) Urine RBC (0-2/HPF) Urine WBC (0-5/HPF) Ur Epithelial Cells (NONE-FEW) Urine Bacteria (NEGATIVE) Urine Opiates Screen (NEGATIVE) Ur Oxycodone Screen (NEGATIVE) Urine Methadone Screen (NEGATIVE) Ur Barbiturates Screen (NEGATIVE) Ur Phencyclidine Scrn (NEGATIVE) Ur Amphetamine Screen (NEGATIVE) U Methamphetamines Scrn (NEGATIVE) U Benzodiazepines Scrn (NEGATIVE) U Cocaine Metab Screen (NEGATIVE) U Marijuana (THC) Screen (NEGATIVE) Ethyl Alcohol mg/dL SARS-CoV-2 RNA (BRE) (NEGATIVE) Med Orders - Current: Current Medications Discontinued Medications Chlordiazepoxide HCl (Chlordiazepoxide 25 Mg Cap) 25 mg PO ONETIME ONE Stop: 11/04/21 13:29 Last Admin: 11/04/21 14:25 Dose: 25 mg Documented by: Chlordiazepoxide HCl (Chlordiazepoxide 25 Mg Cap) 25 mg PO ONETIME ONE Stop: 11/04/21 16:25 Desmopressin Acetate (Desmopressin 4 Mcg/1 Ml Amp) 2 mcg SUBCUT ONETIME ONE Stop: 11/04/21 04:32 Last Admin: 11/04/21 05:22 Dose: 2 mcg Documented by: Folic Acid (Folic Acid 50 Mg/10 Ml Mdv) 1 mg IV DAILY DALTON Last Admin: 11/04/21 08:47 Dose: 1 mg Documented by: Haloperidol Lactate (Haloperidol Lactate 5 Mg/Ml Sdv) Confirm Administered Dose 10 mg .ROUTE .STK-MED ONE Stop: 11/04/21 04:15 Last Admin: 11/04/21 04:40 Dose: Not Given Documented by: Haloperidol Lactate (Haloperidol Lactate 5 Mg/Ml Sdv) 7 mg IM ONETIME ONE Stop: 11/04/21 04:15 Last Admin: 11/04/21 04:15 Dose: 7 mg Documented by: Haloperidol Lactate (Haloperidol Lactate 5 Mg/Ml Sdv) Confirm Administered Dose 5 mg .ROUTE .STK-MED ONE Stop: 11/04/21 16:04 Lactated Ringer's (Ringers, Lactated) 1,000 mls @ 999 mls/hr IV .BOLUS ONE Stop: 11/03/21 22:15 Last Admin: 11/03/21 21:24 Dose: 999 mls/hr Documented by: Sodium Chloride (Sodium Chloride 3%) 500 mls @ 150 mls/hr IV ASDIRECTED DALTON Last Infusion: 11/04/21 00:35 Dose: 0 mls/hr Documented by: Dextrose/Water (Dextrose 5% In Water) 500 mls @ 500 mls/hr IV ASDIRECTED DALTON Dextrose/Water (Dextrose 5% In Water) 1,000 mls @ 500 mls/hr IV ASDIRECTED DALTON Last Admin: 11/04/21 01:10 Dose: 500 mls/hr Documented by: Dextrose/Water (Dextrose 5% In Water) 1,000 mls @ 999 mls/hr IV ASDIRECTED DALTON Desmopressin Acetate 2 mcg/ (Sodium Chloride) 50.5 mls @ 100 mls/hr IV Q6HR DALTON Last Admin: 11/04/21 12:17 Dose: 100 mls/hr Documented by: Dextrose/Water (Dextrose 5% In Water) 1,000 mls @ 100 mls/hr IV ASDIRECTED DALTON Lorazepam (Lorazepam 2 Mg/Ml Sdv) 2 mg IVPUSH ONETIME ONE Stop: 11/03/21 21:15 Last Admin: 11/03/21 21:24 Dose: 2 mg Documented by: Lorazepam (Lorazepam 2 Mg/Ml Sdv) Confirm Administered Dose 2 mg .ROUTE .STK-MED ONE Stop: 11/03/21 21:15 Last Admin: 11/03/21 21:20 Dose: Not Given Documented by: Lorazepam (Lorazepam 2 Mg/Ml Sdv) 2 mg IVPUSH ONETIME ONE Stop: 11/03/21 21:31 Last Admin: 11/03/21 21:34 Dose: 2 mg Documented by: Lorazepam (Lorazepam 2 Mg/Ml Sdv) 1 mg IVPUSH ONETIME ONE Stop: 11/03/21 23:03 Last Admin: 11/03/21 23:45 Dose: 1 mg Documented by: Lorazepam (Lorazepam 2 Mg/Ml Sdv) 0 mg IVPUSH Q1H PRN; Protocol PRN Reason: CIWAA Last Admin: 11/04/21 08:47 Dose: 2 mg Documented by: Lorazepam (Lorazepam 2 Mg/Ml Sdv) Confirm Administered Dose 2 mg .ROUTE .STK-MED ONE Stop: 11/03/21 23:04 Last Admin: 11/03/21 23:34 Dose: Not Given Documented by: Lorazepam (Lorazepam 2 Mg/Ml Sdv) 1 mg IVPUSH ONETIME ONE Stop: 11/03/21 23:37 Last Admin: 11/03/21 23:45 Dose: 1 mg Documented by: Sodium Chloride (Sodium Chloride 0.9% 10 Ml Syringe) 10 ml FLUSH ASDIRECTED PRN PRN Reason: Keep Vein Open Last Admin: 11/03/21 21:23 Dose: 10 ml Documented by: Sodium Chloride (Sodium Chloride 0.9% 2.5 Ml Syringe) 2.5 ml FLUSH ASDIRECTED PRN PRN Reason: Keep Vein Open Last Admin: 11/03/21 21:24 Dose: 2.5 ml Documented by: Thiamine HCl (Thiamine 200 Mg/2 Ml Mdv) 400 mg IVPUSH ONETIME ONE Stop: 11/03/21 22:17 Last Admin: 11/03/21 22:29 Dose: 400 mg Documented by: Thiamine HCl (Thiamine 200 Mg/2 Ml Mdv) 100 mg IVPUSH DAILY DALTON Last Admin: 11/04/21 10:16 Dose: Not Given Documented by:
== END 2021-11-04 17:30 | disposition left against medical advice (07) | DRG 641 ==
LOC: MW.ED 21:10 → MW.ICU 23:08
PROVIDERS: ADMIT Internal Medicine; ATTEND Internal Medicine
DX: E87.1 Hypo-osmolality and hyponatremia (principal); F10.239 Alcohol dependence with withdrawal, unspecified; R56.9 Unspecified convulsions; Z20.822 Contact with and (suspected) exposure to COVID-19; F15.10 Other stimulant abuse, uncomplicated
CPT/HCPCS: 36410; 36415; 70450; 70450-26; 71045; 71045-26; 80053; 80305-QW; 80307; 81001; 82550; 83605; 83735; 83930; 84100; 84146; 84295; 85025; 85027; 93005; 96374; 99285-25; A9270-GY; J1630; J2060; J2597; J3411; J7060; J7120; J7131; U0002

== ENCOUNTER 2021-11-08 22:32 | Emergency (ER) | payer MEDICAID, OTHER ==
[2021-11-08] MEDS ORDERED: Lidocaine 1% with EPINEPHrine 1:100,000 20 ML MDV INJECT ONE (22:46)
--- NOTE | 2021-11-08 22:48 | EDM.PDOC ---
ED HPI GENERAL MEDICAL PROBLEM - General Chief Complaint: Laceration Stated Complaint: CUT ON EYEBROW Time Seen by Provider: 11/08/21 22:38 - History of Present Illness INITIAL COMMENTS - FREE TEXT/NARRATIVE: History of present illness: [] Patient slipped and fell just prior to arrival. It is eyelid on the steps. He denies any head injury. Supple with no pain or step-off or tenderness. Patient has no other injury. He has a simple laceration of his left eyelid. Review of systems: As per history of present illness and below otherwise all systems reviewed and negative. Past medical history: As per history of present illness and as reviewed below otherwise noncontributory. Surgical history: As per history of present illness and as reviewed below otherwise noncontributory. Social history: No reported history of drug or alcohol abuse. Family history: As per history of present illness and as reviewed below otherwise noncontributory. Physical exam: Constitutional - well developed, well-nourished and in no acute distress HEENT -1.5 cm full-thickness laceration just below the brow on the left upper eyelid. Normocephalic, no evidence of trauma - external nose and mouth normal - no mass in neck and no JVD - mucosae moist EYES - full EOM, PERRL, no icterus - no evidence of inflammation, injection, or drainage Respiratory - no respiratory distress, equal bilateral expansion Musculoskeletal C-spine cleared by Nexus criteria no gross deformity of long bones or joints - no tenderness, swelling or edema Neurologic - Alert and oriented times four - CN II-XII grossly intact - motor sensory and coordination symmetrically normal Psychiatric - appropriate mood and affect with normal thought content Hematologic - No petechiae or purpura - mucosa appropriate color and sclera not pale - normal nail bed color and refill Integument - no rash or evidence of trauma - normal turgor Diagnostics: [] Therapeutics: [] Impression: [] Plan: [] Definitive disposition and diagnosis as appropriate pending reevaluation and review of above. Left Upper Eyelid Pain Score (Numeric/FACES): 6 - Related Data Allergies Allergy/AdvReac Type Severity Reaction Status Date / Time No Known Allergies Allergy Verified 11/08/21 22:38 Home Meds: Home Meds . 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 ED EXAM, SKIN/RASH Exam: See Below Text/Narrative:: My physical exam is in the HPI ED SKIN PROCEDURES - Laceration/Wound Repair Left Face Appearance: Subcutaneous Anesthetic Type: Local Local Anesthesia - Lidocaine (Xylocaine): 1% with EPI Local Anesthetic Volume: 4cc Skin Prep: Providone-Iodine (Betadine), Saline Saline Irrigation (cc's): 250 Exploration/Debridement/Repair: Wound Explored Closed with: Sutures Lac/Wound length In cm: 1.5 Suture Size: 6-0 # of Sutures: 5 Suture Type: Nylon, Simple Suture Size: 6-0 # of Sutures: 1 Repaired with: Chromic Course - Vital Signs Last Recorded V/S: Last Vital Signs Temp 36.7 C 11/08/21 22:38 Pulse 107 H 11/08/21 22:38 Resp 14 11/08/21 22:38 BP 139/90 11/08/21 22:38 Pulse Ox 96 11/08/21 22:38 - Orders/Labs/Meds Meds: Medications Discontinued Medications Generic Name Dose Route Start Last Admin Trade Name Sandra PRN Reason Stop Dose Admin Lidocaine/Epinephrine 20 ml 11/08/21 22:46 11/08/21 22:50 Lidocaine 1% With Epinephrine 1:100,000 20 Ml Mdv INJECT 11/08/21 22:47 20 ml ONETIME ONE Administration Departure - Departure Time of Disposition: 23:25 Disposition: Home, Self-Care 01 Condition: Good Clinical Impression: Laceration of left eyelid without complication - Discharge Information Instructions: Laceration Care, Adult Forms: ED Department Discharge Additional Instructions: Keep the wound clean. Return if evidence of infection. Watch for vomiting severe headache or any neurologic complaints. Sutures out in 7 to 10 days. [facility] - [facility] [address] [place] [address] [facility] [address] [place] [address] The following information is given to patients seen in the emergency department who are being discharged to home. This information is to outline your options for follow-up care. We provide all patients seen in our emergency department with a follow-up referral. The need for follow-up, as well as the timing and circumstances, are variable depending upon the specifics of your emergency department visit. If you don't have a primary care physician on staff, we will provide you with a referral. We always advise you to contact your personal physician following an emergency department visit to inform them of the circumstance of the visit and for follow-up with them and/or the need for any referrals to a consulting specialist. The emergency department will also refer you to a specialist when appropriate. This referral assures that you have the opportunity for follow-up care with a specialist. All of these measure are taken in an effort to provide you with optimal care, which includes your follow-up. Under all circumstances we always encourage you to contact your private physician who remains a resource for coordinating your care. When calling for follow-up care, please make the office aware that this follow-up is from your recent emergency room visit. If for any reason you are refused follow-up, please contact the [facility] Emergency Department at and asked to speak to the emergency department charge nurse. Sepsis Event Note (ED) - Evaluation Sepsis Screening Result: No Definite Risk - Focused Exam Vital Signs: Vital Signs Temp Pulse Resp BP Pulse Ox 11/08/21 22:38 36.7 C 107 H 14 139/90 96
== END 2021-11-08 23:31 | disposition home or self-care (01) ==
LOC: MW.ED 22:32
DX: S01.112A Laceration without foreign body of left eyelid and periocular area, initial encounter (principal); W01.0XXA Fall on same level from slipping, tripping and stumbling without subsequent striking against object, initial encounter
CPT/HCPCS: 12011; 99282-25

== ENCOUNTER 2022-07-06 16:54 | Emergency (ER) | payer MEDICAID | END 2022-07-06 18:29 | LOC: MW.ED 16:54 | DX: Z02.89 Encounter for other administrative examinations (principal) | CPT/HCPCS: 99282; 99283 ==

== ENCOUNTER 2022-12-02 20:34 | Emergency (ER) | payer MEDICAID | END 2022-12-02 21:21 | LOC: MW.ED 20:34 | DX: Z02.89 Encounter for other administrative examinations (principal); F11.90 Opioid use, unspecified, uncomplicated; I10 Essential (primary) hypertension; E11.9 Type 2 diabetes mellitus without complications | CPT/HCPCS: 99283 ==